=== PATIENT | female | born 1940 | race Caucasian/White ===

== ENCOUNTER 2016-06-12 02:20 | Inpatient (IN) | payer MEDICARE ==
[~2016-06-12] VITALS: Ht 160 cm; Wt 55.3 kg
[~2016-06-12 02:20] MED LIST: ALENDRONATE SOD70 MG PO; BAYER CHEWABLE81 MG PO; COLACE100 MG PO; CYMBALTA60 MG PO; DEMEROL 2525 MG/1 ML IM; HYDROCODONE-APA1 TAB PO; K-DUR20 MEQ PO; LIDODERM 5 %1 PATCH TD; LOVENOX30 MG/0.3 SQ; MIRALAX17 GM PO; MIRAPEX0.125 MG PO; NEXIUM40 MG PO; NORCO 10/325 TA1 TA1 PO; OS-CAL 500+D TA1 TAB PO; PRAVACHOL40 MG PO; QUESTRAN PACK4 G/PKT PO; ROCEPHIN 1 GM/D51 G1 IV; SENOKOT-S TABLE1 TAB PO; TENORMIN25 MG PO; TYLENOL 325 MG325 MG PO; VENTOLIN HFA18 GM INH; XANAX1 MG; XANAX1 MG PO; ZOFRAN4 MG PO
--- NOTE | 2016-06-12 05:10 | NUR ---
PATIENT RECIEVED FROM ER A NEW ADMIT TO DOCTOR OLMOS. ADMITTED FOR DEMENTIA, ALTERED MENTAL STATUS AND VISUAL HALLUCINATIONS. PATIENT WALKED A MILE FROM [facility] BECAUSE SHE STATED SHE WANTS TO SMOKE AND DRINK WHEN SHE WANTS TO. VITAL SIGNS STABLE UPON ADMIT, ORIENTED TO UNIT, CALM AND COOPERATIVE TO STAFF. MARIO ALARM ON BED.
[2016-06-12] MEDS ORDERED: BIAXIN 500 MG500 MG PO (05:15)
[2016-06-12] MEDS ORDERED: AMOXICILLIN500 M1 PO (05:15)
[2016-06-12] MEDS ORDERED: MELATONIN 3 MG1 TAB PO (05:16)
[2016-06-12] MEDS ORDERED: ACETAMINOPHEN500 M1 PO (05:17)
[2016-06-12 06:45] LABS: BASOPHILS 0.8 % (0.0-2.0); EOSINOPHILS 4.1 % (0-7); HEMATOCRIT 34.3 % (36.0-48.0); HEMOGLOBIN 11.1 g/dL (12-16); LYMPHOCYTES 49.1 % (15-50); MCH 30.2 pg (26.0-34.0); MCHC 32.4 g/dL (31.0-37.0); MCV 93.2 fL (80.0-100.0); MEAN PLATELET VOLUME 8.9 fL (7.4-10.4); MONOCYTES 8.3 % (2-11); NEUTROPHILS 37.7 % (40-80); PLATELET COUNT 235 10x3/uL (130-400); RBC 3.68 10x6/uL (4.00-5.40); RDW 14.7 % (11.5-14.5); WBC 3.9 10x3/uL (4.8-10.8)
[2016-06-12 07:00] VITALS: BP 118/62; BMI 21.5
[2016-06-12 07:13] LABS: ALBUMIN 2.9 g/dL (3.4-5.0); ALKALINE PHOSPHATASE 33 U/L (46-116); ALT (SGPT) 13 U/L (10-68); CALC OSMOLALITY 288 mosm/kg (275-300); CALCIUM 8.7 mg/dL (8.5-10.1); CARBON DIOXIDE 30.1 mmol/L (21.0-32.0); CHLORIDE - SERUM 109 mmol/L (98-107); CHOL - HDL RATIO 2.6 ratio (2.3-4.1); CHOLESTEROL, TOTAL 142 mg/dL (0-200); CREATININE - SERUM 0.6 mg/dL (0.6-1.3); GLUCOSE 82 mg/dL (74-106); HDL CHOLESTEROL 55 mg/dL (32-96); LDL CHOLESTEROL 73 mg/dL (0-100); LDL-HDL RATIO 1.3 ratio (1.5-3.5); POTASSIUM - SERUM 3.8 mmol/L (3.5-5.1); PROTEIN - SERUM 6.3 g/dL (6.4-8.2); SODIUM 145 mmol/L (136-145); THYROID STIMULATING HORMONE 1.63 uIU/mL (0.36-3.74); TRIGLYCERIDE 72 mg/dL (30-200); UREA NITROGEN 14 mg/dL (7-18); eGFR NON AFRICAN AMERICAN > 90 mL/min (90-120)
[2016-06-12 08:01] VITALS: BP 111/53
[2016-06-12 09:25] VITALS: Ht 160 cm; Wt 55.3 kg
--- NOTE | 2016-06-12 14:23 | NUR ---
B.) Alert and oriented to self, has no insight to why she is here states " I'm here at this [facility] because they asked me too, and I figured it's christian so why not." I.) Administer medications and monitor compliance, redirect and reorient as need. Encourage group participation. Monitor safety. R.) Compliant with medications. No aggression. No evidence of reorientation. P.) Continue plan of care.
--- NOTE | 2016-06-12 17:15 | NUR ---
Patient daughter Raven Yanez here to complete signing admission papers, took home patient belongings of black cell phone and silver colored watch.
[2016-06-12 20:29] VITALS: BP 150/92
[2016-06-12 22:45] LABS: APPEARANCE HAZY (CLEAR); COLOR YELLOW (YELLOW)
[2016-06-12 22:46] LABS: BACTERIA MANY /hpf (NONE SEEN); BILIRUBIN NEGATIVE (NEGATIVE); GLUCOSE NEGATIVE (NEGATIVE); KETONE NEGATIVE (NEGATIVE); LEUKOCYTE ESTERASE 1+ (NEGATIVE); NITRITE POSITIVE (NEGATIVE); PROTEIN NEGATIVE (NEGATIVE); RED CELLS - URINE 0-5 /hpf (0-5); UROBILINOGEN NORMAL (NORMAL)
--- NOTE | 2016-06-13 00:14 | NUR ---
B) Recieved sitting in the day room, alert and oriented to self, thinks she needs to see the us administrative law judge in the morning, restless at times, demanding and impatient at times. I) Administered perscribed medications , redirected and oriented as needed, R) Medication compliant, difficult to redirect, P) Continue plan of care, continue to monitor.
[2016-06-13] MEDS ORDERED: SEROQUEL100 MG PO (04:29)
[2016-06-13] MEDS ORDERED: ZOFRAN4 MG PO (04:38)
[2016-06-13 06:15] LABS: RAPID PLASMA REAGIN Non Reactive (Non Reactive)
[2016-06-13 07:50] VITALS: BP 140/91
[2016-06-13 08:22] LABS: VITAMIN D 25 HYDROXY 12.1 ng/mL (30.0-100.0)
[2016-06-13 09:17] LABS: FOLATE (FOLIC ACID) - SERUM 14.3 ng/mL (>3.0)
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
--- NOTE | 2016-06-13 12:26 | NUR ---
CONTINUES TO C/O PAIN WITH A RATING 8/10. PRN NORCO ADMINISTERED PER ORDERS.
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
--- NOTE | 2016-06-13 15:16 | NUR ---
VARINDER SPOKE WITH DTR AND PT'S SURGERY IS SCHEDULED FOR Friday06/20/16. VARINDER CALLED 'S OFFICE AND THEY ARE WILLING TO ACCEPT PT EARLY ON MONDAY 06/19. VARINDER NEEDS TO CONTACT ANDREA KILLIAN AT FRIDAY TO REMIND HER OF DISCHARGE PLANS.
--- NOTE | 2016-06-14 02:27 | NUR ---
B) Recieved sleeping in the day room, arrouses to name, alert, and oriented to self, argumentive at times, resistant to redirection, does not want to follow the unit rules, I) Administered perscribed medications, redirected and oriented as needed, PRN Haldol 1 mg IM given for anxiety at 0215, R) Medication compliant, wanting to walk the halls and argue with the staff to keep from sleeping, P) Continue plan of care, continue to monitor.
[2016-06-14 08:55] VITALS: BP 114/55
--- NOTE | 2016-06-14 13:28 | NUR ---
(B)RECEIVED PATIENT LAYING IN BED. SEDATED. WILL OPEN EYES PARTIALLY TO VERBAL INSTRUCTIONS RELATING "OK. I'M TRYING" HOWEVER DOES NOT COMPLETELY OPEN EYES. MOSTLY WHISPERING AND MUMBLING. PATIENT WILL OCCASIONALLY SAY SOMETHING THAT IS UNDERSTANDABLE. ASSISTED UP BY DRESSING AND ASSISTING TO CHAIR. (I)ADMINISTER MEDS AND MONITOR COMPLIANCE. (R)MEDICATIONS WERE HELD DUE TO PATIENT BEING SEDATED. ATTEMPTS TO FOLLOW INSTRUCTIONS HOWEVER DOES NOT COMPLETELY WAKE UP. (P)CONTINUE POC AND MAINTAIN FALL PRECAUTIONS.
[2016-06-14 19:30] VITALS: BP 119/66
--- NOTE | 2016-06-15 02:15 | NUR ---
Patient in dayroom, oriented to person, place and situation. Lethargic but awake. Patient was cooperative with medication. Continue plan of care, continue to monitor.
[2016-06-15 09:03] VITALS: BP 119/68
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
[2016-06-15 19:30] VITALS: BP 120/75
--- NOTE | 2016-06-15 21:37 | NUR ---
B) recieved sitting in a chair inthe day room, alert and oriented to self and hospital, calm and quiet this shift, cooperative with staff, I) Administered perscribed medications, redirected as needed, reoriented as needed, R) medication compliant, no outburst this shift, P) Continue plan of care, continue to monitor.
--- NOTE | 2016-06-16 07:54 | PN ---
PATIENT:DREW GARCÍA MEDICAL RECORD: [id number] LOCATION:[facility] ADMISSION DATE: 06/12/16 PROGRESS NOTE DATE OF SERVICE: 06/14/2016 SUBJECTIVE: No new complaint. OBJECTIVE: The patient exhibited moderate agitation last night, but responded well to p.r.n.'s. On exam today, mood is euthymic. Affect is constricted. Speech is rather terse. Content of thought focuses only on somatic concerns. Sensorium is unchanged. ASSESSMENT: No change in diagnoses. PLAN: 1. Maintain current medications. 2. Continue supportive therapy. TRANSINT:[id number] Voice Confirmation ID: [id number] DOCUMENT ID: [id number] BRONWYN ARANDA III, MD at 0754 CC: [id number] DICTATION DATE: 06/14/16 1051 GYMNASTIC COACH: 06/14/16 1300 ADM IN [place] [id number] [place] [id number]
[2016-06-16 10:07] VITALS: BP 112/68
--- NOTE | 2016-06-16 15:05 | NUR ---
ORIENTED TO PERSON AND PLACE. NO AGGRESSION NOTED. DENIES SI, DEPRESSION, AND HALLUCINATIONS. POSITIVE REINFORCEMENT GIVEN FOR GROUP PARTICIPATION. MED COMPLIANT. EDUCATION PT ON PROPER USE OF WALKER. REDIRECTED NEEDED. FALL PRECAUTIONS MAINTAINED. WILL CONTINUE WITH PLAN OF CARE.
[2016-06-16 19:30] VITALS: BP 121/66
--- NOTE | 2016-06-16 20:14 | NUR ---
RECEIVED IN DAYROOM. SETTING IN WHEELCHAIR. ORIENTED X3. CALM AND COOPERATIVE WITH CARE AND ASSESSMENT. ENCOURAGE TO EXPRESS NEEDS. REINFORCE TO EXPRESS NEEDS AND FEELINGS. CONTINUES TO REST QUIETLY IN WHEELCHAIR. CONTINUE PLAN OF CARE
[2016-06-17 10:31] VITALS: BP 108/65
--- NOTE | 2016-06-17 13:31 | PN ---
PATIENT:DREW GARCÍA MEDICAL RECORD: [id number] LOCATION:[facility] ADMISSION DATE: 06/12/16 PROGRESS NOTE DATE OF SERVICE: 06/13/2016 SUBJECTIVE: The patient's case was discussed with staff. She has no new complaint. OBJECTIVE: The patient is in good behavioral control with limited insight about her condition. She tolerates her medicines well. ASSESSMENT: No change in diagnoses. PLAN: Current medicines and therapies have been reviewed and will be maintained. Long-term prognosis is guarded. TRANSINT:[id number] Voice Confirmation ID: [id number] DOCUMENT ID: [id number] HARISH OLMOS MD at 1331 CC: [id number] DICTATION DATE: 06/13/16 1452 WATER PROOFER: 06/13/16 1532 ADM IN [place] [id number] [place] [address]
--- NOTE | 2016-06-17 16:45 | NUR ---
RECEIVED THIS AM SITTING IN WHEELCHAIR AT NURSES STATION.PROPELLS SELF IN WHEELCHAIR.ORIENTED AND COOPERATIVE.COMPLIANT WITH MEDS.NO AGGRESSION OBSERVED,DENIES SUICIDE IDEATION AND DEPRESSION TODAY.WILL CONTINUE WITH PLAN OF CARE ,MONITOR FOR CHANGES AND SAFETY.
[2016-06-17 20:00] VITALS: BP 122/66
--- NOTE | 2016-06-17 20:12 | NUR ---
RECEIVED IN DAYROOM. SETTING IN WHEELCHAIR AT TABLE WITH STAFF AND PEERS AT HER SIDE. ALERT AND ORIENTED. HELPFUL WITH PEERS. IN GOOD SPIRITS. CALM AND COOPERATIVE WITH CARE AND ASSESSMENT. ENCOURAGE TO EXPRESS NEEDS. CONTINUES TO SET QUIETLY IN WHEELCHAIR. CONTINUE PLAN OF CARE
[2016-06-18 08:32] VITALS: BP 122/68
--- NOTE | 2016-06-18 10:37 | NUR ---
Nutrition Follow Up: Chart reviewed. Pt is eating 58% meal avg on a Regular diet. +BM 06/16/16. Meds noted including Megace. No new labs to assess. Pt with fair po intake at this time. Rec continue current diet. Will continue to send selective menus and honor food preferences. Will send Ensure with meals. RD following.
--- NOTE | 2016-06-18 12:38 | NUR ---
B.) Alert and oriented times three, forgetful at times, very social with others with appropriate behavior and conversation. I.) Administer medciations and monitor compliance. Redirect for any inappropriate behavior. Encourage group participation. Monitor safety. R.) Compliant with medications. Calm and cooperative with care. Self propels in wheel chair with no exit seeking or risk of elopment. Safety maintained. P.) Continue plan of care.
--- NOTE | 2016-06-18 13:44 | PN ---
PATIENT:DREW GARCÍA MEDICAL RECORD: [id number] LOCATION:[facility] ADMISSION DATE: 06/12/16 PROGRESS NOTE DATE OF SERVICE: 06/17/2016 SUBJECTIVE: The patient's case was discussed with staff. She has no new complaint. OBJECTIVE: The patient denies intent to harm herself or others. She generally tolerates her medicines well. ASSESSMENT: No change in diagnoses. PLAN: The patient is severely impaired and scored 14/30 on the [place] scale. Her functioning is clearly inappropriate for assisted living and the fact that she has been in a structured environment with reassurance and queuing and her admitting symptoms have gone away as further evidence that the problem was environmental and does not require an aggressive pharmacologic intervention. As a result, I have reviewed her medications and did not plan to change them today. TRANSINT:[id number] Voice Confirmation ID: [id number] DOCUMENT ID: [id number] HARISH OLMOS MD at 1344 CC: [id number] DICTATION DATE: 06/17/16 1455 SCALE AND SKIP CAR OPERATOR: 06/17/16 2215 ADM IN [place] [id number] [place] [address]
[2016-06-18] MEDS ORDERED: MEGACE40 MG PO (13:54)
[2016-06-18] MEDS ORDERED: ARICEPT5 MG PO (13:55)
[2016-06-18] MEDS ORDERED: VITAMIN D5000 UNIT PO (13:56)
[2016-06-18 19:31] VITALS: BP 144/83
--- NOTE | 2016-06-18 23:41 | NUR ---
PATIENT IN DAYROOM, INTERACTING WITH PEERS. PATIENT ORIENTED TO PERSON, PLACE, TIME AND SITUATION. PATIENT CALM AND COOPERATIVE. CONTINUE TO MONITOR, CONTINUE PLAN OF CARE.
[2016-06-19 08:02] VITALS: BP 135/75
--- NOTE | 2016-06-19 09:39 | NUR ---
FOLLOW-UP APPOINTMENT MADE FOR PATIENT WITH NATHALY MOISE NP FOR DR DE PAZ FOR Friday AT 2 PM.
--- NOTE | 2016-06-19 09:50 | NUR ---
PRESCRIPTIONS CALLED INTO THE PHARMACY OF PATIENT'S CHOICE.
--- NOTE | 2016-06-19 16:40 | PN ---
PATIENT:DREW GARCÍA MEDICAL RECORD: [id number] LOCATION:[facility] ADMISSION DATE: 06/12/16 PROGRESS NOTE DATE OF SERVICE: 06/18/2016 SUBJECTIVE: The patient's case was discussed with staff. She has no new complaint. OBJECTIVE: The patient is calm and cooperative, but severely impaired cognitively. She is scheduled for surgery on and will be discharged tomorrow afternoon if this level of improvement is maintained. TRANSINT:[id number] Voice Confirmation ID: [id number] DOCUMENT ID: [id number] HARISH OLMOS MD at 1640 CC: [id number] DICTATION DATE: 06/18/16 1400 IMAGERY ANALYST: 06/18/162010 ADM IN [facility] [address] [place] [address]
--- NOTE | 2016-06-19 18:18 | NUR ---
RECEIVED SITTING IN WHEELCHAIR IN DAYROOM.ORIENTED X 3.COMPLIANT WITH MEDS. VISITS WITH PEERS.TO BE DISCHARGED HOME WITH DAUGHTER THIS AFTERNOON.WILL CONTINUE WITH PLAN OF CARE,MONITOR FOR CHANGES AND SAFETY.
--- NOTE | 2016-06-19 18:25 | NUR ---
DISCHARGED HOME WITH DAUGHTER AT 1615.ALL PERSONAL ITEMS AND INSTRUCTIONS SENT WITH HER.
--- NOTE | 2016-06-20 13:22 | PN ---
PATIENT:DREW GARCÍA MEDICAL RECORD: [id number] LOCATION:[facility]112 ADMISSION DATE: 06/12/16 PROGRESS NOTE DATE OF SERVICE: 06/19/2016 SUBJECTIVE: The patient's case was discussed with staff. She has no new complaint. OBJECTIVE: The patient is in good behavioral control. She is quite impaired cognitively. ASSESSMENT: No change in diagnosis. PLAN: The patient is being discharged today. She will be admitted to the hospital across [facility] in the morning and she is going to have revision of her shunt. I am not optimistic that that is going to change her cognition. I do think that her behaviors have been related to dementia and not this neurologic problem. I hope I am wrong about that, but it will be important to reassess her needs after the surgery. I am hopeful that she will improve cognitively, but at this point, she does not show evidence of direct or acute dangerousness to herself or others. TRANSINT:[id number] Voice Confirmation ID: [id number] DOCUMENT ID: [id number] HARISH OLMOS MD at 1322 CC: [id number] DICTATION DATE: 06/19/16 1652 FAMILY NURSE PRACTITIONER: 06/19/165 DIS IN 06/19/16 [place] [address] [place] [address]
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
== END 2016-06-19 16:15 | disposition home or self-care (01) | DRG 57 ==
LOC: D.PSYCH 02:20
PROVIDERS: ADMIT Psychiatry & Neurology Psychiatry
DX: G30.1 Alzheimer's disease with late onset (principal); F02.81 Dementia in other diseases classified elsewhere, unspecified severity, with behavioral disturbance; G91.2 (Idiopathic) normal pressure hydrocephalus; N39.0 Urinary tract infection, site not specified; K21.9 Gastro-esophageal reflux disease without esophagitis; K59.09 Other constipation; F41.9 Anxiety disorder, unspecified; Z72.0 Tobacco use; E78.5 Hyperlipidemia, unspecified; I25.10 Atherosclerotic heart disease of native coronary artery without angina pectoris; D64.9 Anemia, unspecified; R26.89 Other abnormalities of gait and mobility; G47.00 Insomnia, unspecified; B96.20 Unspecified Escherichia coli [E. coli] as the cause of diseases classified elsewhere; E55.9 Vitamin D deficiency, unspecified

== ENCOUNTER 2017-06-29 22:39 | Inpatient (IN) | payer MEDICARE ==
[~2017-06-29 22:39] MED LIST changes: +ACETAMINOPHEN500 M1 PO; +AMOXICILLIN500 M1 PO; +ARICEPT5 MG PO; +BIAXIN 500 MG500 MG PO; +MEGACE40 MG PO; +MELATONIN 3 MG1 TAB PO; +SEROQUEL100 MG PO; +VITAMIN D5000 UNIT PO
[2017-06-29 23:30] LABS: BASOPHILS 0.1 % (0-2); EOSINOPHILS 0.5 % (0-7); HEMATOCRIT 31.5 % (36.0-48.0); HEMOGLOBIN 9.2 g/dL (12-16); IMMATURE GRANULOCYTES 0.3 % (0-5); LYMPHOCYTES 5.5 % (15-50); MCH 22.7 pg (26.0-34.0); MCHC 29.2 g/dL (31.0-37.0); MCV 77.6 fL (80.0-100.0); MEAN PLATELET VOLUME 8.8 fL (7.4-10.4); MONOCYTES 8.7 % (2-11); NEUTROPHILS 84.9 % (40-80); PLATELET COUNT 311 10x3/uL (130-400); RBC 4.06 10x6/uL (4.00-5.40); WBC 15.3 10x3/uL (4.8-10.8)
[2017-06-29 23:37] LABS: APTT 25.9 SECONDS (22.8-39.4); INR 1.07 (0.85-1.17); PROTIME 13.5 SECONDS (11.6-15.0)
[2017-06-29 23:42] LABS: ALBUMIN 3.4 g/dL (3.4-5.0); ALKALINE PHOSPHATASE 51 U/L (46-116); ALT (SGPT) 11 U/L (10-68); BILIRUBIN - TOTAL 0.26 mg/dL (0.2-1.3); CALC OSMOLALITY 281 mosm/kg (275-300); CALCIUM 8.7 mg/dL (8.5-10.1); CHLORIDE - SERUM 103 mmol/L (98-107); CREATININE - SERUM 0.9 mg/dL (0.6-1.3); GLUCOSE 125 mg/dL (74-106); POTASSIUM - SERUM 3.7 mmol/L (3.5-5.1); PROTEIN - SERUM 7.6 g/dL (6.4-8.2); SODIUM 141 mmol/L (136-145); UREA NITROGEN 12 mg/dL (7-18); eGFR NON AFRICAN AMERICAN 64 mL/min (90-120)
[2017-06-29 23:54] LABS: CKMB 0.7 U/L (0.0-3.6); CREATINE KINASE 67 UL (21-215); PRO BNP 426 pg/mL (0-450)
[2017-06-29 23:55] LABS: TROPONIN-I < 0.017 ng/mL (0.000-0.060)
[2017-06-30 00:01] LABS: APPEARANCE CLEAR (CLEAR); BILIRUBIN NEGATIVE (NEGATIVE); COLOR YELLOW (YELLOW); GLUCOSE NEGATIVE (NEGATIVE); KETONE NEGATIVE (NEGATIVE); NITRITE NEGATIVE (NEGATIVE); PROTEIN NEGATIVE (NEGATIVE); UROBILINOGEN NORMAL (NORMAL)
[2017-06-30] MEDS ORDERED: OMEPRAZOLE20 M1 PO (01:41)
[2017-06-30] MEDS ORDERED: COMPAZINE5 MG PO (01:43)
[2017-06-30] MEDS ORDERED: PROZAC10 MG PO (01:44)
[2017-06-30 01:45] VITALS: BP 106/38; BMI 25.2
[2017-06-30 03:11] LABS: BASOPHILS 0.2 % (0-2); EOSINOPHILS 0 % (0-7); HEMATOCRIT 31.7 % (36.0-48.0); HEMOGLOBIN 9.3 g/dL (12-16); IMMATURE GRANULOCYTES 0.2 % (0-5); LYMPHOCYTES 6.3 % (15-50); MCH 22.7 pg (26.0-34.0); MCHC 29.3 g/dL (31.0-37.0); MCV 77.5 fL (80.0-100.0); MEAN PLATELET VOLUME 8.8 fL (7.4-10.4); MONOCYTES 1.2 % (2-11); NEUTROPHILS 92.1 % (40-80); PLATELET COUNT 312 10x3/uL (130-400); RBC 4.09 10x6/uL (4.00-5.40); RDW 16.9 % (11.5-14.5); WBC 16.3 10x3/uL (4.8-10.8)
[2017-06-30 03:23] LABS: ALBUMIN 3.4 g/dL (3.4-5.0); ANION GAP 15.3 mmol/L (8-16); BILIRUBIN - TOTAL 0.3 mg/dL (0.2-1.3); CALCIUM 8.6 mg/dL (8.5-10.1); CARBON DIOXIDE 27.2 mmol/L (21.0-32.0); CREATININE - SERUM 0.9 mg/dL (0.6-1.3); POTASSIUM - SERUM 3.5 mmol/L (3.5-5.1); PROTEIN - SERUM 7.7 g/dL (6.4-8.2)
[2017-06-30 04:38] VITALS: BP 108/42
[2017-06-30 08:02] VITALS: BP 113/53
[2017-06-30 10:44] LABS: % SATURATION 5 % (15-55); IRON 19 ug/dl (35-150); TOTAL IRON BIND CAPACITY 356 ug/dl (260-445); UNSAT IRON BIND CAPACITY 337 ug/dl (150-375)
[2017-06-30 11:23] VITALS: BP 121/46
[2017-06-30 12:44] VITALS: BMI 25.1
[2017-06-30 16:06] VITALS: BP 116/56
[2017-06-30] MEDS ORDERED: KLONOPIN0.5 MG PO (21:03)
[2017-06-30 21:14] VITALS: BP 123/55
[2017-07-01 01:38] VITALS: BP 121/52
[2017-07-01 04:59] LABS: BASOPHILS 0 % (0-2); EOSINOPHILS 0 % (0-7); HEMATOCRIT 27.7 % (36.0-48.0); HEMOGLOBIN 8.2 g/dL (12-16); IMMATURE GRANULOCYTES 0.3 % (0-5); LYMPHOCYTES 5.3 % (15-50); MCH 22.8 pg (26.0-34.0); MCHC 29.6 g/dL (31.0-37.0); MCV 77.2 fL (80.0-100.0); MEAN PLATELET VOLUME 9.3 fL (7.4-10.4); MONOCYTES 3.3 % (2-11); NEUTROPHILS 91.1 % (40-80); PLATELET COUNT 318 10x3/uL (130-400); RBC 3.59 10x6/uL (4.00-5.40); RDW 17.5 % (11.5-14.5); WBC 19.3 10x3/uL (4.8-10.8)
[2017-07-01 05:19] LABS: CALC OSMOLALITY 286 mosm/kg (275-300); CALCIUM 8.5 mg/dL (8.5-10.1); CARBON DIOXIDE 25.2 mmol/L (21.0-32.0); CHLORIDE - SERUM 106 mmol/L (98-107); CREATININE - SERUM 0.7 mg/dL (0.6-1.3); GLUCOSE 150 mg/dL (74-106); POTASSIUM - SERUM 3.4 mmol/L (3.5-5.1); SODIUM 142 mmol/L (136-145); UREA NITROGEN 15 mg/dL (7-18); eGFR NON AFRICAN AMERICAN 86 mL/min (90-120)
[2017-07-01 05:55] VITALS: BP 119/62
[2017-07-01 08:19] LABS: FOLATE (FOLIC ACID) - SERUM 14.9 ng/mL (>3.0)
[2017-07-01 09:18] VITALS: BP 120/54
[2017-07-01 13:06] VITALS: BP 107/43
[2017-07-01 16:35] VITALS: BP 120/48
[2017-07-01 21:30] VITALS: BP 112/53
[2017-07-02 01:10] VITALS: BP 124/54
[2017-07-02 04:36] VITALS: BP 124/58
[2017-07-02 05:34] LABS: BASOPHILS 0 % (0-2); EOSINOPHILS 0 % (0-7); HEMATOCRIT 26.7 % (36.0-48.0); HEMOGLOBIN 7.8 g/dL (12-16); IMMATURE GRANULOCYTES 0.4 % (0-5); LYMPHOCYTES 9.4 % (15-50); MCH 22.3 pg (26.0-34.0); MCHC 29.2 g/dL (31.0-37.0); MCV 76.5 fL (80.0-100.0); MEAN PLATELET VOLUME 9.1 fL (7.4-10.4); MONOCYTES 5.2 % (2-11); PLATELET COUNT 314 10x3/uL (130-400); RBC 3.49 10x6/uL (4.00-5.40)
[2017-07-02 05:39] LABS: WBC 13.9 10x3/uL (4.8-10.8)
[2017-07-02 05:53] LABS: CALC OSMOLALITY 286 mosm/kg (275-300); CALCIUM 8.5 mg/dL (8.5-10.1); CARBON DIOXIDE 27.5 mmol/L (21.0-32.0); CHLORIDE - SERUM 108 mmol/L (98-107); CREATININE - SERUM 0.6 mg/dL (0.6-1.3); GLUCOSE 117 mg/dL (74-106); POTASSIUM - SERUM 3.6 mmol/L (3.5-5.1); SODIUM 143 mmol/L (136-145); UREA NITROGEN 14 mg/dL (7-18); eGFR NON AFRICAN AMERICAN > 90 mL/min (90-120)
[2017-07-02 08:45] VITALS: BP 120/57
[2017-07-02] MEDS ORDERED: ZITHROMAX250 MG PO (10:16)
[2017-07-02] MEDS ORDERED: OMNICEF300 MG PO (10:16)
== END 2017-07-02 11:34 | disposition home or self-care (01) | DRG 189 ==
LOC: D.ER 22:39 → D.MS 06-30 00:52
PROVIDERS: Family Medicine; Internal Medicine Nephrology
DX: J96.21 Acute and chronic respiratory failure with hypoxia (principal); J44.0 Chronic obstructive pulmonary disease with (acute) lower respiratory infection; G91.2 (Idiopathic) normal pressure hydrocephalus; J44.1 Chronic obstructive pulmonary disease with (acute) exacerbation; J81.1 Chronic pulmonary edema; D50.9 Iron deficiency anemia, unspecified; E55.9 Vitamin D deficiency, unspecified; F03.90 Unspecified dementia, unspecified severity, without behavioral disturbance, psychotic disturbance, mood disturbance, and anxiety; K21.9 Gastro-esophageal reflux disease without esophagitis; K58.0 Irritable bowel syndrome with diarrhea

== ENCOUNTER → 2018-01-09 13:29 | Outpatient (CLI) | payer MEDICARE ==
[~2018-01-09 13:29] MED LIST changes: +COMPAZINE5 MG PO; +KLONOPIN0.5 MG PO; +OMEPRAZOLE20 M1 PO; +OMNICEF300 MG PO; +PROZAC10 MG PO; +ZITHROMAX250 MG PO
== END | disposition home or self-care (01) ==
LOC: D.RT 13:29
DX: J44.9 Chronic obstructive pulmonary disease, unspecified (principal)

== ENCOUNTER → 2018-03-04 09:56 | Outpatient (CLI) | payer MEDICARE | END | disposition home or self-care (01) | LOC: D.CT 09:56 | DX: T85.09XA Other mechanical complication of ventricular intracranial (communicating) shunt, initial encounter (principal) ==

== ENCOUNTER 2018-03-12 11:30 | Inpatient (IN) | payer MEDICARE ==
[2018-03-11 15:05] LABS: BASOPHILS 0.7 % (0-2); EOSINOPHILS 1.4 % (0-7); HEMATOCRIT 41.1 % (36.0-48.0); HEMOGLOBIN 13.2 g/dL (12-16); IMMATURE GRANULOCYTES 0.3 % (0-5); LYMPHOCYTES 14.1 % (15-50); MCH 29.6 pg (26.0-34.0); MCHC 32.1 g/dL (31.0-37.0); MCV 92.2 fL (80.0-100.0); MEAN PLATELET VOLUME 9.1 fL (7.4-10.4); MONOCYTES 7.5 % (2-11); PLATELET COUNT 295 10x3/uL (130-400); RBC 4.46 10x6/uL (4.00-5.40); RDW 13.9 % (11.5-14.5); WBC 10.6 10x3/uL (4.8-10.8)
[2018-03-11 15:14] LABS: CALC OSMOLALITY 286 mosm/kg (275-300); CALCIUM 8.8 mg/dL (8.5-10.1); CARBON DIOXIDE 33.9 mmol/L (21.0-32.0); CHLORIDE - SERUM 105 mmol/L (98-107); CREATININE - SERUM 0.7 mg/dL (0.6-1.3); GLUCOSE 98 mg/dL (74-106); POTASSIUM - SERUM 3.4 mmol/L (3.5-5.1); SODIUM 144 mmol/L (136-145); UREA NITROGEN 13 mg/dL (7-18); eGFR NON AFRICAN AMERICAN 86 mL/min (90-120)
[2018-03-11 15:16] LABS: APTT 24.4 SECONDS (22.8-39.4)
[2018-03-11 15:17] LABS: INR 1.01 (0.85-1.17); PROTIME 12.9 SECONDS (11.6-15.0)
[~2018-03-12] VITALS: Ht 162.6 cm; Wt 67.3 kg
--- NOTE | ~2018-03-12 | MORECARE ---
CASE MANAGEMENT DISCHARGE SUMMARY PATIENT: DREW GARCÍA UNIT: [id number] ADM DATE: 03/12/18 AGE: 78 : 41 SEX: F ROOM/BED: D.2230 AUTHOR: EDUARDOC PHYSICIAN: REFERRING PHYSICIAN: JEANNINE AJ MD DATE OF SERVICE: 03/16/18 Discharge Plan Patient Name: DREW GARCÍA Facility: [facility] : 1940 Planned Disposition: Assisted Living Anticipated Discharge Date: 03/13/18 Discharge Date: 03/13/2018 Expected LOS: 1 Initial Reviewer: [email or web address] Initial Review Date: 03/13/2018 Generated: 03/16/18 3:37 pm DCP- Discharge Planning Updated by [email or web address]: Kenia Jeffries on 03/13/18 8:[address] Patient Name: DREW GARCÍA Admission Status: Elective Accout number: [id number] Admission Date: 03-12-2018 : 1940 Admission Diagnosis: Attending: JEANNINE AJ Current LOS: 1 Anticipated DC Date: 03-13-2018 Planned Disposition: Assisted Living Primary Insurance: MEDICARE A & B Discharge Planning Comments: CM met with patient and daughter to discuss discharge planning. She lives at [facility]. Her daughter states she will take her home. States she uses her walker for ambulation and nurses give her medications, otherwise she is independent with ADL's. Her DCP is to return to [facility]. Denies need for additional DME or home health services. I called and spoke to the nurse at [facility] and clinical faxed to [phone] per request. customer account coordinator and primary nurse given number to call report. CM will continue to follow and assist with discharge planning/needs. Lead Informatica Developer: Kenia Jeffries DCPIA - Discharge Planning Initial Assessment Updated by [email or web address]: Kenia Jeffries on 03/13/18 9:56 am * Is the patient Alert and Oriented? Yes * How many steps to enter\exit or inside your home? 0/0 * PCP Dr. Lopez * Pharmacy [place] * Preadmission Environment Assisted Living * Facility Name [facility] * ADLs Partial Dependent * Partial ADLs (Assistance needed) Ambulation Medication Management * Equipment Rolling Walker * List name and contact numbers for known caregivers / representatives who currently or will assist patient after discharge: Raven Yanez * Verbal permission to speak to the caregivers and representatives has been obtained from the patient. Yes * Community resources currently utilized Assisted Living * Please name any agencies selected above. [facility] * Additional services required to return to the preadmission environment? No * Can the patient safely return to the preadmission environment? Yes * Has this patient been hospitalized within the prior 30 days at any hospital? No Last DP export: 03/13/18 9:07 a Patient Name: DREW GARCÍA Page [id number] at 1437 All edits/amendments must be made on the electronic document DICTATION DATE: 03/16/181436 MANAGER: TAMERA 03/16/181436 RPT#: [id number] DC DATE:03/13/18 STATUS: DIS IN [facility] [address] [place] [address] END OF REPORT
--- NOTE | ~2018-03-12 | MORECARE ---
CASE MANAGEMENT DISCHARGE SUMMARY PATIENT: DREW GARCÍA UNIT: [id number] ADM DATE: 03/12/18 AGE: 78 : 41 SEX: F ROOM/BED: D.2230 AUTHOR: EDUARDOC PHYSICIAN: REFERRING PHYSICIAN: JEANNINE AJ MD DATE OF SERVICE: 03/13/18 Discharge Plan Patient Name: DREW GARCÍA Facility: [facility]:[place] : 1940 Planned Disposition: Assisted Living Anticipated Discharge Date: 03/13/18 Discharge Date: Expected LOS: 1 Initial Reviewer: [email or web address] Initial Review Date: 03/13/2018 Generated: 03/13/18 11:07 am Comments DCP- Discharge Planning Updated by [email or web address]: Kenia Jeffries on 03/13/18 8:[address] Patient Name: DREW GARCÍA Admission Status: Elective Accout number: [id number] Admission Date: 03-12-2018 : 1940 Admission Diagnosis: Attending: JEANNINE AJ Current LOS: 1 Anticipated DC Date: 03-13-2018 Planned Disposition: Assisted Living Primary Insurance: MEDICARE A & B Discharge Planning Comments: CM met with patient and daughter to discuss discharge planning. She lives at [facility]. Her daughter states she will take her home. States she uses her walker for ambulation and nurses give her medications, otherwise she is independent with ADL's. Her DCP is to return to [facility]. Denies need for additional DME or home health services. I called and spoke to the nurse at [facility] and clinical faxed to [phone] per request. digital traffic coordinator and primary nurse given number to call report. CM will continue to follow and assist with discharge planning/needs. Web Applications Administrator: Kenia Jeffries DCPIA - Discharge Planning Initial Assessment Updated by [email or web address]: Kenia Jeffries on 03/13/18 9:56 am * Is the patient Alert and Oriented? Yes * How many steps to enter\exit or inside your home? 0/0 * PCP Dr. Lopez * [facility]acy [facility] * Preadmission Environment Assisted Living * Facility Name [facility] * ADLs Partial Dependent * Partial ADLs (Assistance needed) Ambulation Medication Management * Equipment Rolling Walker * List name and contact numbers for known caregivers / representatives who currently or will assist patient after discharge: Raven Yanez * Verbal permission to speak to the caregivers and representatives has been obtained from the patient. Yes * Community resources currently utilized Assisted Living * Please name any agencies selected above. [facility] * Additional services required to return to the preadmission environment? No * Can the patient safely return to the preadmission environment? Yes * Has this patient been hospitalized within the prior 30 days at any hospital? No External Providers External Provider: Barry Tuttle Next Contact Date: Service Request Date: Service Type: Resolution: Reviewer: Comments: Last DP export: 03/13/18 9:00 a Patient Name: DREW GARCÍA Page [phone] at 1007 All edits/amendments must be made on the electronic document DICTATION DATE: 03/13/18 [facility] GARBAGE COLLECTOR: TAMERA 03/13/18 [facility] RPT#: [id number] DC DATE: STATUS: ADM IN [facility] [address] [place] [address] END OF REPORT
--- NOTE | ~2018-03-12 | DS ---
PATIENT:DREW CHOU :42 MEDICAL RECORD: [id number] DISCHARGE SUMMARY ADMISSION DATE: 03/12/18 DISCHARGE DATE: 03/13/18 HOSPITAL COURSE: Ms. Chou was admitted on the day of surgery, underwent a ventriculoperitoneal shunt revision. She tolerated the procedure well, was discharged to home on postoperative day #2. DIET: Regular. ACTIVITY: Ad rony. Discharge medications were the same as admission medications. She is to follow up with Dr. Aj in 1 week. TRANSINT:[id number] Voice Confirmation ID: [id number] DOCUMENT ID: [id number] JEANNINE AJ MD at 0950 CC: [id number] DICTATION DATE: 04/04/18 1144 DIGITAL AD TRAFFICKER: 04/04/18 2322 DIS IN 03/13/18 [place] [place] [address]
--- NOTE | ~2018-03-12 | OP ---
PATIENT NAME: DREW GARCÍA MEDICAL RECORD: [id number] :42 LOCATION:D.MS [id number] ADMISSION DATE:03/12/18 SURGEON: JEANNINE AJ MD DATE OF OPERATION: 03/12/2018 PREOPERATIVE DIAGNOSIS: Ventriculoperitoneal shunt malfunction. 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 PROCEDURE: Ventriculoperitoneal shunt revision with replacement of valve. SURGEON: Jeannine Aj MD PRIMARY CARE DOCTOR: Rob Lopez MD DESCRIPTION AND TECHNIQUE: After induction of general endotracheal anesthesia, the patient was positioned supine on the operating table. The left frontoparietal occipital area as well as the chest and abdomen and neck were prepped and draped in usual sterile fashion. After sterile prep and drape, a 1:100,000 epinephrine and 1% lidocaine was infiltrated in the subcutaneous tissues overlying the left ventriculoperitoneal shunt valve. A previous incision was incised with a #10 blade. Using Bovie cautery, the previous valve was exposed. The peritoneal catheter was detached from the valve and there was no egress of spinal fluid from the valve. The valve was removed from the ventricular catheter portion of the shunt. There was brisk egress of CSF from the ventricular catheter. Next, a new level 1 pressure valve was used to replace the ventriculoperitoneal shunt valve that previously been there. The proximal end was attached to the ventricular catheter with 3-0 silk ties. The distal peritoneal catheter was flushed with vancomycin irrigant solution. A monometer was attached to the distal valve and there was runoff pressure of approximately 1 cm of water. Next, the peritoneal catheter was attached to the distal shunt valve and with a 3-0 silk suture. There was brisk egress of CSF through the valve upon pumping the valve. The subdermal layer was closed with interrupted 3-0 Vicryl suture. The skin was closed with janeen. A sterile dressing was applied to the wound. The patient was awakened in good condition and taken to recovery. All counts were reported as correct. Estimated blood loss was minimal. TRANSINT:[id number] Voice Confirmation ID: [id number] DOCUMENT ID: [id number] JEANNINE AJ MD at 0950 CC: [id number] DICTATION DATE: 04/04/18 1148 HOME PARAPROFESSIONAL: 04/04/18 1238 DIS IN 03/13/[address] [facility] [address] [place] [address]
--- NOTE | ~2018-03-12 | MORECARE ---
CASE MANAGEMENT DISCHARGE SUMMARY PATIENT: DREW GARCÍA UNIT: [id number] ADM DATE: 03/12/18 AGE: 78 : 41 SEX: F ROOM/BED: D.2230 AUTHOR: EDUARDOC PHYSICIAN: REFERRING PHYSICIAN: JEANNINE AJ MD DATE OF SERVICE: 03/13/18 Discharge Plan Patient Name: DREW GARCÍA Facility: [facility]:[place] : 1940 Planned Disposition: Assisted Living Anticipated Discharge Date: 03/13/18 Discharge Date: Expected LOS: 1 Initial Reviewer: [email or web address] Initial Review Date: 03/13/2018 Generated: 03/13/18 11:00 am Comments DCP- Discharge Planning Updated by [email or web address]: Kenia Jeffries on 03/13/18 8:[address] Patient Name: DREW GARCÍA Admission Status: Elective Accout number: [id number] Admission Date: 03-12-2018 : 1940 Admission Diagnosis: Attending: JEANNINE AJ Current LOS: 1 Anticipated DC Date: 03-13-2018 Planned Disposition: Assisted Living Primary Insurance: MEDICARE A & B Discharge Planning Comments: CM met with patient and daughter to discuss discharge planning. She lives at [facility]. Her daughter states she will take her home. States she uses her walker for ambulation and nurses give her medications, otherwise she is independent with ADL's. Her DCP is to return to [facility]. Denies need for additional DME or home health services. I called and spoke to the nurse at [facility] and clinical faxed to [phone] per request. membership coordinator and primary nurse given number to call report. CM will continue to follow and assist with discharge planning/needs. Janitorial Account Manager: Kenia Jeffries DCPIA - Discharge Planning Initial Assessment Updated by [email or web address]: Kenia Jeffries on 03/13/18 9:56 am * Is the patient Alert and Oriented? Yes * How many steps to enter\exit or inside your home? 0/0 * PCP Dr. Lopez * Pharmacy [facility] * Preadmission Environment Assisted Living * Facility Name [facility] * ADLs Partial Dependent * Partial ADLs (Assistance needed) Ambulation Medication Management * Equipment Rolling Walker * List name and contact numbers for known caregivers / representatives who currently or will assist patient after discharge: Raven Yanez * Verbal permission to speak to the caregivers and representatives has been obtained from the patient. Yes * Community resources currently utilized Assisted Living * Please name any agencies selected above. [facility] * Additional services required to return to the preadmission environment? No * Can the patient safely return to the preadmission environment? Yes * Has this patient been hospitalized within the prior 30 days at any hospital? No Patient Name: DREW GARCÍA Page [phone] at 1000 All edits/amendments must be made on the electronic document DICTATION DATE: 03/13/18 1000 EVENT MGR: TAMERA 03/13/18 1000 RPT#: [id number] DC DATE: STATUS: ADM IN [facility] [address] [place] [address] END OF REPORT
[~2018-03-12 11:30] MED LIST changes: +CELEBREX 100 M100 MG PO; +FLUTICASONE PRO16 GM NASAL; +MIRAPEX0.5 MG PO; -PROZAC10 MG PO; +PROZAC20 MG PO; +SINGULAIR10 MG PO
[2018-03-12 12:56] VITALS: BP 113/75; BMI 25.6
[2018-03-12 20:00] VITALS: BP 97/46
[2018-03-12 22:35] VITALS: BP 97/46; Ht 162.6 cm; Wt 67.3 kg
[2018-03-13 04:00] VITALS: BP 135/77
[2018-03-13 08:34] VITALS: BP 111/54
== END 2018-03-13 11:02 | disposition home or self-care (01) | DRG 33 ==
LOC: D.SDCHOLD 11:30 → D.MS 11:30 → D.SDCHOLD 13:45 → D.MS 19:44
PROVIDERS: Anesthesiology; Neurological Surgery
PROC: 00W60JZ Revision of Synthetic Substitute in Cerebral Ventricle, Open Approach (ICD-10-PCS; principal; 2018-03-12 13:45)
DX: G91.2 (Idiopathic) normal pressure hydrocephalus (principal)

== ENCOUNTER 2018-08-23 18:39 | Inpatient (IN) | payer MEDICARE ==
[~2018-08-23] VITALS: Ht 162.6 cm; Wt 66.4 kg
[2018-08-23 19:08] LABS: BASOPHILS 0.3 % (0-2); EOSINOPHILS 0.3 % (0-7); HEMATOCRIT 37.3 % (36.0-48.0); IMMATURE GRANULOCYTES 0.2 % (0-5); LYMPHOCYTES 4.3 % (15-50); MCH 28.8 pg (26.0-34.0); MCHC 32.2 g/dL (31.0-37.0); MCV 89.4 fL (80.0-100.0); MEAN PLATELET VOLUME 9.2 fL (7.4-10.4); MONOCYTES 9.5 % (2-11); NEUTROPHILS 85.4 % (40-80); PLATELET COUNT 253 10x3/uL (130-400); RBC 4.17 10x6/uL (4.00-5.40); RDW 14.6 % (11.5-14.5)
--- NOTE | 2018-08-23 19:30 | NUR ---
PT RESTING ON BED, PT DAUGHTER AT BEDSIDE. PT DENIES DISCOMFORT AT THIS TIME.
[2018-08-23 19:32] VITALS: BP 157/91
[2018-08-23 19:34] LABS: ALBUMIN 3.2 g/dL (3.4-5.0); ANION GAP 12.1 mmol/L (8-16); BILIRUBIN - TOTAL 0.24 mg/dL (0.2-1.3); CALCIUM 8.6 mg/dL (8.5-10.1); CARBON DIOXIDE 28.6 mmol/L (21.0-32.0); CREATININE - SERUM 0.9 mg/dL (0.6-1.3); POTASSIUM - SERUM 3.7 mmol/L (3.5-5.1); PROTEIN - SERUM 7.3 g/dL (6.4-8.2)
[2018-08-23 19:54] LABS: APPEARANCE CLOUDY (CLEAR); BILIRUBIN NEGATIVE (NEGATIVE); COLOR STRAW (YELLOW); GLUCOSE NEGATIVE (NEGATIVE); KETONE NEGATIVE (NEGATIVE); NITRITE POSITIVE (NEGATIVE); PROTEIN TRACE mg/dL (NEGATIVE); UROBILINOGEN NORMAL (NORMAL)
[2018-08-23 19:56] LABS: BACTERIA MANY /hpf (NONE SEEN); RED CELLS - URINE 0-5 /hpf (0-5)
[2018-08-23 20:02] LABS: PRO BNP 565 pg/mL (0-450)
[2018-08-23 20:05] LABS: TROPONIN-I < 0.017 ng/mL (0.000-0.060)
--- NOTE | 2018-08-23 20:22 | NUR ---
PT UPDATED ON PLAN OF CARE. PT FAMILY AT BEDSIDE. NO S/S OF ACUTE DISTRESS NOTED.
[2018-08-23 20:30] VITALS: BP 124/49
--- NOTE | 2018-08-23 21:40 | NUR ---
RECEIVED FROM ER VIA WC. TRANSFERED HERSELF TO THE BED. ALERT/ORIENTED X4. HOOKED UP TO O2 AT 2L/NC STARTED IN ER. 20G IV IN LT HAND WITH NS INFUSING AT 75ML/HR. DENIES PAIN. REQUESTED A LEMON-AKIACHAK SODA AND BSC. HER DAUGHTER IS PRESENT IN ROOM. ORIENTED TO THE ROOM AND CALL LIGHT. BED IS LOW WITH SR UP X2.
[2018-08-24 00:14] VITALS: BP 114/56; BMI 25.3
--- NOTE | 2018-08-24 02:00 | NUR ---
WATCHING TV. WITH CALL LIGHT UP TO HER EAR. DENIES ANY NEEDS OR DISCOMFORTS.
--- NOTE | 2018-08-24 04:31 | NUR ---
ADMIN TYLENOL 500 MG PO PER REQUEST FOR C/O PAIN LEVEL 8 ON NUMBER SCALE, DESCRIBED ACHING "ALL OVER".
--- NOTE | 2018-08-24 05:45 | NUR ---
DID FLU SWAB AND SENT TO LAB.
[2018-08-24 06:01] VITALS: BP 140/80
--- NOTE | 2018-08-24 07:22 | NUR ---
ROUNDING DONE WITH PATIENT LAYING ON BACK, GLASSES ON. DENIES NEEDS AT THIS TIME. ON 2L PER NC. LEFT HAND PIV SEEN WITH NS INFUSING AT 75 CC/HR. RESE. RIGHT ARM FROM PAST LUMBECTOMY. BSC AT BEDSIDE. WILL MONITOR.
[2018-08-24 07:48] VITALS: BP 118/53
--- NOTE | 2018-08-24 10:12 | NUR ---
NON SKID SOCKS PLACED ON PATIENT. REFUSES TO WEAR THE SCD'S ORDERED.
--- NOTE | 2018-08-24 10:28 | NUR ---
[facility] PLACED INTO BSC FOR URINE CULTURE TO BE OBTAINED.
--- NOTE | 2018-08-24 10:41 | NUR ---
I CALLED ISHA IN THE PHARMACY FOR CLEBREX AND MIRAPEX.
[2018-08-24 11:15] LABS: CALCIUM 7.8 mg/dL (8.5-10.1); CARBON DIOXIDE 30.8 mmol/L (21.0-32.0); CHLORIDE - SERUM 110 mmol/L (98-107); POTASSIUM - SERUM 3.7 mmol/L (3.5-5.1); SODIUM 145 mmol/L (136-145)
[2018-08-24 11:20] VITALS: BP 111/55
[2018-08-24 11:20] LABS: CALC OSMOLALITY 287 mosm/kg (275-300); CREATININE - SERUM 0.6 mg/dL (0.6-1.3); GLUCOSE 90 mg/dL (74-106); UREA NITROGEN 10 mg/dL (7-18); eGFR NON AFRICAN AMERICAN > 90 mL/min (90-120)
[2018-08-24 11:31] LABS: HEMATOCRIT 32.9 % (36.0-48.0); HEMOGLOBIN 10.9 g/dL (12-16); LYMPHOCYTES 17.8 % (15-50); MCHC 33.1 g/dL (31.0-37.0); MCV 90.6 fL (80.0-100.0); NEUTROPHILS 75.3 % (40-80); PLATELET COUNT 241 10x3/uL (130-400); RBC 3.63 10x6/uL (4.00-5.40); RDW 14.5 % (11.5-14.5)
[2018-08-24 11:32] LABS: WBC 11.4 10x3/uL (4.8-10.8)
--- NOTE | 2018-08-24 11:45 | NUR ---
UNABLE TO OBTAIN URINE OR STOOL PATIENT HAD MIXED IN [facility].
[2018-08-24 12:12] VITALS: Ht 162.6 cm; Wt 66.4 kg
--- NOTE | 2018-08-24 12:32 | NUR ---
UA AND STOOL SENT TO LAB ORDERED.
--- NOTE | 2018-08-24 13:36 | NUR ---
PLACED ON HEART MONITOR ORDERED.
--- NOTE | 2018-08-24 13:49 | NUR ---
KLONOPIN 0.5 MG GIVEN PER REQUEST. SHOWING SR W OCC PAC'S, HR 70 ON HEART MONITOR.
[2018-08-24 14:41] VITALS: BP 116/59
--- NOTE | 2018-08-24 15:20 | NUR ---
MIRAPEX WAS GIVEN ORDERED. REQUESTS LIGHTS OUT FOR NAP, DONE.
--- NOTE | 2018-08-24 15:59 | NUR ---
VISITING WITH FEMALE MEMBER IN ROOM. IV IS GOING OFF, FLUSHES EASILY. I ASKED PATIENT IF SHE WANTED ME TO RE-SITE IT AND SHE SAID NO. NO S/S OF INFILTRATION SEEN, NO REDNESS.
--- NOTE | 2018-08-24 16:20 | NUR ---
IV RE-SITED TO LEFT WRIST WITH 22 G X 1 STICK. LEFT HAND IV CATH REMOVED WITH CATH TIP INTACT.
--- NOTE | 2018-08-24 19:05 | NUR ---
ALERT/AWAKE TALKING ON HER PHONE. DENIES ANY NEEDS OR DISCOMFORTS. IV IN L WRIST WITH NS INFUSINGS AT 75ML/HR. ORIENTED TO CALL LIGHT FOR ANY NEEDS.
--- NOTE | 2018-08-24 21:10 | NUR ---
ADMIN SCHED MEDS AND CLONOPIN 0.5MG PER HER REQUEST. REQUESTED SALTINE CRACKERS AND LEMON-RESIGHINI SODA.
[2018-08-24 21:48] VITALS: BP 131/61
[2018-08-25 05:55] VITALS: BP 138/59
[2018-08-25 06:17] LABS: CALC OSMOLALITY 292 mosm/kg (275-300); CALCIUM 7.8 mg/dL (8.5-10.1); CARBON DIOXIDE 27.3 mmol/L (21.0-32.0); CHLORIDE - SERUM 113 mmol/L (98-107); CREATININE - SERUM 0.6 mg/dL (0.6-1.3); GLUCOSE 88 mg/dL (74-106); POTASSIUM - SERUM 3.4 mmol/L (3.5-5.1); SODIUM 149 mmol/L (136-145); UREA NITROGEN 8 mg/dL (7-18); eGFR NON AFRICAN AMERICAN > 90 mL/min (90-120)
[2018-08-25 06:27] LABS: BASOPHILS 0.7 % (0-2); EOSINOPHILS 4.8 % (0-7); HEMATOCRIT 33.1 % (36.0-48.0); HEMOGLOBIN 10.5 g/dL (12-16); LYMPHOCYTES 29.4 % (15-50); MCH 28.8 pg (26.0-34.0); MCHC 31.7 g/dL (31.0-37.0); MCV 90.9 fL (80.0-100.0); MEAN PLATELET VOLUME 9.5 fL (7.4-10.4); MONOCYTES 6.3 % (2-11); NEUTROPHILS 58.8 % (40-80); PLATELET COUNT 255 10x3/uL (130-400); RBC 3.64 10x6/uL (4.00-5.40); RDW 14.8 % (11.5-14.5)
[2018-08-25 06:45] LABS: WBC 7.1 10x3/uL (4.8-10.8)
--- NOTE | 2018-08-25 07:33 | NUR ---
ROUNDING DONE WITH PATIENT ON ROOM AIR. DENIES NEEDS AT THIS TIME. ON EP, K+ IS 3.4, THIS WAS COVERED WITH ORAL SUPPLEMENTS. NEW LAB ORDERED TIMED. LEFT WRIST PIV SEEN WITH NS INFUSING AT 75 CC/HR, BSC AT BEDSIDE. RES. RIGHT ARM FROM PAST HX LUMPECTOMY.
[2018-08-25 08:07] VITALS: BP 146/66
[2018-08-25] MEDS ORDERED: LEVAQUIN750 MG PO (11:10)
[2018-08-25] MEDS ORDERED: FLAGYL500 MG PO (11:11)
[2018-08-25 11:25] VITALS: BP 169/74
--- NOTE | 2018-08-25 13:07 | MORECARE ---
CASE MANAGEMENT DISCHARGE SUMMARY PATIENT: DREW GARCÍA UNIT: [id number] ADM DATE: 08/23/18 AGE: 78 : 41 SEX: F ROOM/BED: D.2107 AUTHOR: GÓMEZ WITT PHYSICIAN: REFERRING PHYSICIAN: GRUPO SELF MD DATE OF SERVICE: 08/25/18 Discharge Plan Patient Name: DREW GARCÍA Facility: [facility]:[place] : 1940 Planned Disposition: Home Anticipated Discharge Date: 08/25/18 Discharge Date: Expected LOS: 2 Initial Reviewer: [email or web address] Initial Review Date: 08/25/2018 Generated: 08/25/18 2:07 pm DCPIA - Discharge Planning Initial Assessment Updated by [email or web address]: Oz Pedersen on 08/25/18 1:06 pm * Is the patient Alert and Oriented? Yes * How many steps to enter\exit or inside your home? NONE * PCP DR. DE PAZ * Pharmacy [facility] * Preadmission Environment Assisted Living * Facility Name [facility], * ADLs Partial Dependent * Partial ADLs (Assistance needed) Medication Management * Equipment Rolling Walker * Other Equipment WALKER WITH 4 WHEELS, SEAT AND BRAKES NO MEDICAL EQUIPMENT PROVIDER PREFERENCE * List name and contact numbers for known caregivers / representatives who currently or will assist patient after discharge: JACOB LEDBETTER DTR, * Verbal permission to speak to the caregivers and representatives has been obtained from the patient. N/A * Community resources currently utilized None * Please name any agencies selected above. NONE * Additional services required to return to the preadmission environment? No * Can the patient safely return to the preadmission environment? Yes * Has this patient been hospitalized within the prior 30 days at any hospital? No Patient Name: DREW GARCÍA Page 52442 at 1307 All edits/amendments must be made on the electronic document DICTATION DATE: 08/25/18 1306 CHAMBER WORKER: TAMERA 08/25/18 1306 RPT#: [id number] DC DATE: STATUS: ADM IN [facility] [address] [place] [address] END OF REPORT
--- NOTE | 2018-08-25 13:14 | MORECARE ---
CASE MANAGEMENT DISCHARGE SUMMARY PATIENT: DREW GARCÍA UNIT: [id number] ADM DATE: 08/23/18 AGE: 78 : 41 SEX: F ROOM/BED: D.2882 AUTHOR: EDUAR,DOC PHYSICIAN: REFERRING PHYSICIAN: GRUPO SELF MD DATE OF SERVICE: 08/25/18 Discharge Plan Patient Name: DREW GARCÍA Facility: [facility]:[place] : 1940 Planned Disposition: Assisted Living Anticipated Discharge Date: 08/25/18 Discharge Date: Expected LOS: 2 Initial Reviewer: [email or web address] Initial Review Date: 08/25/2018 Generated: 08/25/18 2:14 pm Comments DCP- Discharge Planning Updated by [email or web address]: Oz Pedersen on 08/25/18 12:[address] Patient Name: DREW GARCÍA Admission Status: ER Accout number: [id number] Admission Date: 08-23-2018 : 1940 Admission Diagnosis:UNSPECIFIED ABDOMINAL PAIN Attending: GRUPO SELF Current LOS: 2 Anticipated DC Date: 08-25-2018 Planned Disposition: Assisted Living Primary Insurance: MEDICARE A & B PLANNED EXTERNAL PROVIDER: [facility] Discharge Planning Comments: CM MET WITH PT IN ROOM TO DISCUSS DISCHARGE PLANNING AND NEEDS. PT REPORTS LIVING ALONE AT [facility]. PT REPORTS ASSISTANCE WITH MEDICATION MANAGEMENT, TRANSPORTATION AND MEAL PREPARATION. PT HAS HOUSEKEEPING SERVICES. PT HAS WALKER WITH FOUR WHEELS AND SEAT AND NO MEDICAL EQUIPMENT PROVIDER PREFERNECE. PT HAS NO OUTSIDE SERVICES ASSISTING IN THE HOME. CM DISCUSSED AVAILABILITY OF HOME HEALTH, REHAB SERVICES AND MEDICAL EQUIPMENT. PT DENIES DISCHARGE NEEDS, REPORTS HER DAUGHTER WILL PICK HER UP FOR DISCHARGE HOME. CM CALLED [facility], , SPOKE TO JOHANNY WHO ASKED FOR NURSE TO CALL REPORT AND CM TO FAX DISCHARGE INFORMATION. CM FAXED DISCHARGE INFORMATION TO [facility] AT [phone]. ASSISTANT CHIEF TRAIN DISPATCHER NURSE NOTIFIED. NURSE REPORT TO BE CALLED TO [facility] AT [phone], PT'S DAUGHTER TO TRANSPORT PT BACK TO [facility] AT DISCHARGE TODAY. Ironer Hand: Oz Pedersen DCPIA - Discharge Planning Initial Assessment Updated by [email or web address]: Oz Pedersen on 08/25/18 1:06 pm * Is the patient Alert and Oriented? Yes * How many steps to enter\exit or inside your home? NONE * PCP DR. DE PAZ * Pharmacy [facility] * Preadmission Environment Assisted Living * Facility Name [facility], * ADLs Partial Dependent * Partial ADLs (Assistance needed) Medication Management * Equipment Rolling Walker * Other Equipment WALKER WITH 4 WHEELS, SEAT AND BRAKES NO MEDICAL EQUIPMENT PROVIDER PREFERENCE * List name and contact numbers for known caregivers / representatives who currently or will assist patient after discharge: JACOB LEDBETTER DTR, * Verbal permission to speak to the caregivers and representatives has been obtained from the patient. N/A * Community resources currently utilized None * Please name any agencies selected above. NONE * Additional services required to return to the preadmission environment? No * Can the patient safely return to the preadmission environment? Yes * Has this patient been hospitalized within the prior 30 days at any hospital? No Last DP export: 08/25/18 12:07 p Patient Name: DREW GARCÍA Page [phone] at 1314 All edits/amendments must be made on the electronic document DICTATION DATE: 08/25/181313 INGREDIENT HANDLER: TAMERA 08/25/181313 RPT#: [id number] DC DATE: STATUS: ADM IN [facility] [address] [place] [address] END OF REPORT
--- NOTE | 2018-08-25 13:22 | MORECARE ---
CASE MANAGEMENT DISCHARGE SUMMARY PATIENT: DREW GARCÍA UNIT: [id number] ADM DATE: 08/23/18 AGE: 78 : 41 SEX: F ROOM/BED: D.8469 AUTHOR: EDUAR,DOC PHYSICIAN: REFERRING PHYSICIAN: GRUPO SELF MD DATE OF SERVICE: 08/25/18 Discharge Plan Patient Name: DREW GARCÍA Facility: [facility]:[place] : 1940 Planned Disposition: Assisted Living Anticipated Discharge Date: 08/25/18 Discharge Date: Expected LOS: 2 Initial Reviewer: [email or web address] Initial Review Date: 08/25/2018 Generated: 08/25/18 2:22 pm Comments DCP- Discharge Planning Updated by [email or web address]: Oz Pedersen on 08/25/18 12:[address] Patient Name: DREW GARCÍA Admission Status: ER Accout number: [id number] Admission Date: 08-23-2018 : 1940 Admission Diagnosis:UNSPECIFIED ABDOMINAL PAIN Attending: GRUPO SELF Current LOS: 2 Anticipated DC Date: 08-25-2018 Planned Disposition: Assisted Living Primary Insurance: MEDICARE A & B PLANNED EXTERNAL PROVIDER: [facility] Discharge Planning Comments: CM MET WITH PT IN ROOM TO DISCUSS DISCHARGE PLANNING AND NEEDS. PT REPORTS LIVING ALONE AT [facility]. PT REPORTS ASSISTANCE WITH MEDICATION MANAGEMENT, TRANSPORTATION AND MEAL PREPARATION. PT HAS HOUSEKEEPING SERVICES. PT HAS WALKER WITH FOUR WHEELS AND SEAT AND NO MEDICAL EQUIPMENT PROVIDER PREFERNECE. PT HAS NO OUTSIDE SERVICES ASSISTING IN THE HOME. CM DISCUSSED AVAILABILITY OF HOME HEALTH, REHAB SERVICES AND MEDICAL EQUIPMENT. PT DENIES DISCHARGE NEEDS, REPORTS HER DAUGHTER WILL PICK HER UP FOR DISCHARGE HOME. CM CALLED [facility], , SPOKE TO JOHANNY WHO ASKED FOR NURSE TO CALL REPORT AND CM TO FAX DISCHARGE INFORMATION. CM FAXED DISCHARGE INFORMATION TO [facility] AT [phone]. STORAGE MANAGER NURSE NOTIFIED. NURSE REPORT TO BE CALLED TO [facility] AT [phone], PT'S DAUGHTER TO TRANSPORT PT BACK TO [facility] AT DISCHARGE TODAY. Detail Sergeant: Oz Pedersen DCPIA - Discharge Planning Initial Assessment Updated by [email or web address]: Oz Pedersen on 08/25/18 1:06 pm * Is the patient Alert and Oriented? Yes * How many steps to enter\exit or inside your home? NONE * PCP DR. DE PAZ * Pharmacy [facility] * Preadmission Environment Assisted Living * Facility Name [facility], * ADLs Partial Dependent * Partial ADLs (Assistance needed) Medication Management * Equipment Rolling Walker * Other Equipment WALKER WITH 4 WHEELS, SEAT AND BRAKES NO MEDICAL EQUIPMENT PROVIDER PREFERENCE * List name and contact numbers for known caregivers / representatives who currently or will assist patient after discharge: JACOB LEDBETTER DTR, * Verbal permission to speak to the caregivers and representatives has been obtained from the patient. N/A * Community resources currently utilized None * Please name any agencies selected above. NONE * Additional services required to return to the preadmission environment? No * Can the patient safely return to the preadmission environment? Yes * Has this patient been hospitalized within the prior 30 days at any hospital? No External Providers External Provider: Barry Tuttle Next Contact Date: 08/25/2018 Service Request Date: Service Type: Resolution: Reviewer: Comments: Last DP export: 08/25/18 12:14 p Patient Name: DREW GARCÍA Page [phone] at 1322 All edits/amendments must be made on the electronic document DICTATION DATE: 08/25/18 1321 DIRECTOR OUTCOMES: TAMERA 08/25/18 1321 RPT#: [id number] [place] DATE: STATUS: ADM IN [facility] [address] [place] [address] END OF REPORT
--- NOTE | 2018-08-25 13:44 | NUR ---
HEART MONTIOR IS TURNED IN PATIENT IS BEING DISCHARGED.
--- NOTE | 2018-08-25 14:00 | NUR ---
REPORT IS CALLED TO LUCIANA ANTONIO AT [facility]. I TOLD HER THAT PATIENT'S DAUGHTER WILL BE BY TO PICK HER UP.
--- NOTE | 2018-08-25 14:03 | NUR ---
PATIENT IS WAITING ON DAUGHTER TO COME GET HER.
--- NOTE | 2018-08-25 15:16 | NUR ---
SALINE LOCK REMOVED WITH CATH TIP INTACT. VERBAL AND WRITTEN DISCHARGE INSTRUCTIONS GIVEN TO PATIENT. DISCHARGED VIA WHEELCHAIR.
[2018-08-25 15:19] VITALS: BP 174/60
== END 2018-08-25 15:21 | disposition home or self-care (01) | DRG 872 ==
LOC: D.ER 18:39 → D.M2 20:50
PROVIDERS: Family Medicine; Internal Medicine Nephrology; ADMIT Family Medicine; ATTEND Family Medicine
DX: A41.9 Sepsis, unspecified organism (principal); N39.0 Urinary tract infection, site not specified; A04.72 Enterocolitis due to Clostridium difficile, not specified as recurrent; E78.5 Hyperlipidemia, unspecified; I48.91 Unspecified atrial fibrillation; K21.9 Gastro-esophageal reflux disease without esophagitis; J44.9 Chronic obstructive pulmonary disease, unspecified; K58.0 Irritable bowel syndrome with diarrhea; F41.9 Anxiety disorder, unspecified; F32.9 Major depressive disorder, single episode, unspecified; D64.9 Anemia, unspecified; Z85.3 Personal history of malignant neoplasm of breast; F03.90 Unspecified dementia, unspecified severity, without behavioral disturbance, psychotic disturbance, mood disturbance, and anxiety

== ENCOUNTER → 2018-11-02 13:51 | Outpatient (CLI) | payer MEDICARE ==
[2018-08-24 12:12] VITALS: BMI 25.2
[~2018-11-02 13:51] MED LIST changes: +FLAGYL500 MG PO; +LEVAQUIN750 MG PO
== END | disposition home or self-care (01) ==
LOC: D.RT 13:51
PROVIDERS: ATTEND Internal Medicine Pulmonary Disease
DX: J44.9 Chronic obstructive pulmonary disease, unspecified (principal)

== ENCOUNTER 2019-10-26 16:07 | Inpatient (IN) | payer MEDICARE ==
[~2019-10-26] VITALS: Ht 162.6 cm; Wt 62.9 kg
[2019-10-26] MEDS ORDERED: CLARITIN 10 MG10 MG PO (16:16)
[2019-10-26] MEDS ORDERED: AZELASTINE137 MCG/0. NASAL (16:16)
[2019-10-26] MEDS ORDERED: HYDROCODON-ACE1 EA10 PO (16:17)
[2019-10-26] MEDS ORDERED: METHOCARBAMOL500 MG PO (16:18)
[2019-10-26] MEDS ORDERED: MECLIZINE HCL25 MG PO (16:18)
[2019-10-26] MEDS ORDERED: ULTRAM50 MG PO (16:19)
[2019-10-26] MEDS ORDERED: MUCINEX600 MG PO (16:19)
[2019-10-26] MEDS ORDERED: SYMBICORT 80-10.2 GM INH (16:19)
[2019-10-26] MEDS ORDERED: VITAMIN D2 (16:20)
[2019-10-26] MEDS ORDERED: ZOFRAN4 MG PO (16:21)
[2019-10-26 16:30] VITALS: BP 108/52
[2019-10-26 16:59] LABS: BASOPHILS 0.5 % (0-2); EOSINOPHILS 0.9 % (0-7); HEMATOCRIT 38.7 % (36.0-48.0); HEMOGLOBIN 11.7 g/dL (12-16); IMMATURE GRANULOCYTES 0.2 % (0-5); LYMPHOCYTES 20.1 % (15-50); MCH 27.5 pg (26.0-34.0); MCHC 30.2 g/dL (31.0-37.0); MCV 91.1 fL (80.0-100.0); MEAN PLATELET VOLUME 9.1 fL (7.4-10.4); MONOCYTES 11.9 % (2-11); NEUTROPHILS 66.4 % (40-80); PLATELET COUNT 239 10x3/uL (130-400); RBC 4.25 10x6/uL (4.00-5.40); WBC 5.5 10x3/uL (4.8-10.8)
[2019-10-26 17:00] VITALS: BP 115/47
[2019-10-26 17:16] LABS: APTT 27.5 SECONDS (22.8-39.4); INR 1.17 (0.85-1.17); PROTIME 14.9 SECONDS (11.6-15.0)
[2019-10-26 17:19] LABS: CALC OSMOLALITY 286 mosm/kg (275-300); CALCIUM 8.8 mg/dL (8.5-10.1); CARBON DIOXIDE 33.4 mmol/L (21.0-32.0); CHLORIDE - SERUM 106 mmol/L (98-107); GLUCOSE 109 mg/dL (74-106); POTASSIUM - SERUM 3.9 mmol/L (3.5-5.1); SODIUM 143 mmol/L (136-145); UREA NITROGEN 16 mg/dL (7-18); eGFR NON AFRICAN AMERICAN 57 mL/min (90-120)
[2019-10-26 17:21] LABS: D-DIMER-QUANTITATIVE 2.17 ug/mLFEU (0.20-0.54)
--- NOTE | 2019-10-26 17:24 | NUR ---
ERP INFORMED OF ELEVATED D-DIMMER OF 2.17
[2019-10-26 17:40] LABS: ALBUMIN 2.9 g/dL (3.4-5.0); ALKALINE PHOSPHATASE 41 U/L (30-120); ALT (SGPT) 10 U/L (10-68); BILIRUBIN - TOTAL 0.23 mg/dL (0.2-1.3); CKMB 0.7 U/L (0.0-3.6); CREATINE KINASE 89 UL (21-215); MAGNESIUM - SERUM 1.9 mg/dL (1.8-2.4); PROTEIN - SERUM 6.7 g/dL (6.4-8.2); TROPONIN-I < 0.017 ng/mL (0.000-0.060)
[2019-10-26 18:00] VITALS: BP 114/52
[2019-10-26 19:00] VITALS: BP 129/60
--- NOTE | 2019-10-26 19:13 | NUR ---
REPORT TO ANDREA ORNELAS
[2019-10-26 19:14] LABS: SPECIFIC GRAVITY 1.025 (1.005-1.020)
[2019-10-26 19:15] LABS: BILIRUBIN NEGATIVE (NEGATIVE); GLUCOSE NEGATIVE (NEGATIVE); KETONE NEGATIVE (NEGATIVE); NITRITE NEGATIVE (NEGATIVE); UROBILINOGEN NORMAL (NORMAL)
--- NOTE | 2019-10-26 20:02 | NUR ---
PT UP TO BEDSIDE COMMODE. VOIDED URINE AT THIS TIME. MEDARDO CARE PROVIDED PER PT. PT REPOSITIONED IN BED.
[2019-10-26 21:17] VITALS: BMI 23.8
[2019-10-26 23:33] LABS: CREATINE KINASE 101 UL (21-215)
[2019-10-26 23:35] LABS: TROPONIN-I < 0.017 ng/mL (0.000-0.060)
[2019-10-27] MEDS ORDERED: ALENDRONAT70 MG/75 M PO (04:49)
[2019-10-27] MEDS ORDERED: BACLOFEN10 MG PO (04:50)
[2019-10-27 05:21] LABS: BASOPHILS 1.5 % (0-2); EOSINOPHILS 4.2 % (0-7); HEMATOCRIT 38.6 % (36.0-48.0); HEMOGLOBIN 11.6 g/dL (12-16); IMMATURE GRANULOCYTES 0.2 % (0-5); LYMPHOCYTES 25.4 % (15-50); MCH 27.3 pg (26.0-34.0); MCHC 30.1 g/dL (31.0-37.0); MCV 90.8 fL (80.0-100.0); MEAN PLATELET VOLUME 9.7 fL (7.4-10.4); MONOCYTES 13.8 % (2-11); NEUTROPHILS 54.9 % (40-80); PLATELET COUNT 257 10x3/uL (130-400); RBC 4.25 10x6/uL (4.00-5.40); RDW 14.8 % (11.5-14.5); WBC 5.2 10x3/uL (4.8-10.8)
[2019-10-27 05:52] LABS: ALBUMIN 2.9 g/dL (3.4-5.0); ALKALINE PHOSPHATASE 35 U/L (30-120); ALT (SGPT) 9 U/L (10-68); BILIRUBIN - TOTAL 0.32 mg/dL (0.2-1.3); CALC OSMOLALITY 279 mosm/kg (275-300); CALCIUM 8.2 mg/dL (8.5-10.1); CARBON DIOXIDE 30.5 mmol/L (21.0-32.0); CHLORIDE - SERUM 105 mmol/L (98-107); CKMB 1.1 U/L (0.0-3.6); CREATINE KINASE 117 UL (21-215); GLUCOSE 83 mg/dL (74-106); POTASSIUM - SERUM 3.6 mmol/L (3.5-5.1); PROTEIN - SERUM 6.6 g/dL (6.4-8.2); SODIUM 141 mmol/L (136-145); UREA NITROGEN 13 mg/dL (7-18)
[2019-10-27 05:54] LABS: CREATININE - SERUM 0.7 mg/dL (0.6-1.3); TROPONIN-I < 0.017 ng/mL (0.000-0.060); eGFR NON AFRICAN AMERICAN 86 mL/min (90-120)
[2019-10-27 08:53] VITALS: BP 129/66
--- NOTE | 2019-10-27 19:50 | NUR ---
PT WAS FOUND IN THE FLOOR WHEN THIS NURSE ENTERED THE ROOM. PT WAS FACE DOWN HOLDING HERSELF UP WITH HER ELBOWS. PT STATED SHE WAS TYRING TO CLEAN HERSELF UP AND SLIPPED.
--- NOTE | 2019-10-27 19:53 | NUR ---
PT STATED THAT SHE DOES NOT WANT HER DAUGHTER CONTACTED OR INFORMED OF HER RECENT FALL.
--- NOTE | 2019-10-27 20:16 | NUR ---
PAGED [facility] AT THIS TIME DUE TO PT FALL. HUDDLE WITH COOKING APPLIANCE REPAIR TECHNICIAN COMPLETE. ALL FALL PERCAUTIONS IN PLACE. VIDEO MONITOR ADDED TO ROOM FOR PT SAFETY. CL IN REACH, BED IN LOWEST POSITION.
--- NOTE | 2019-10-27 20:19 | NUR ---
FELICIA CONNOR APN MADE AWARE OF PT FALL. NO NEW ORDERS AT THIS TIME.
--- NOTE | 2019-10-28 04:01 | NUR ---
PT WAS ATTEMPTING TO GET OUT OF BED. PT WAS WANTING TO USE THE BATHROOM, BED BANKS PROVIDED. PT WAS CONFUSED TO TIME AND SITUATION. REORIENTED PT TO TIME AND SITUATION. PT IS HAVING A HARD TIME ACCEPTING NOT BEING ABLE TO GET UP ON HER OWN. TEACHING ON IMPORTANCE ON USING CALL LIGHT. CL IN REACH, BED IN LOWEST POSITION.
[2019-10-28 05:33] LABS: BASOPHILS 0.5 % (0-2); EOSINOPHILS 1.2 % (0-7); HEMATOCRIT 38.2 % (36.0-48.0); HEMOGLOBIN 11.8 g/dL (12-16); IMMATURE GRANULOCYTES 0.2 % (0-5); LYMPHOCYTES 20.3 % (15-50); MCH 27.4 pg (26.0-34.0); MCHC 30.9 g/dL (31.0-37.0); MEAN PLATELET VOLUME 9.7 fL (7.4-10.4); MONOCYTES 12.2 % (2-11); NEUTROPHILS 65.6 % (40-80); PLATELET COUNT 240 10x3/uL (130-400); RBC 4.31 10x6/uL (4.00-5.40); RDW 14.6 % (11.5-14.5); WBC 6.4 10x3/uL (4.8-10.8)
[2019-10-28 05:46] LABS: MCV 88.6 fL (80.0-100.0)
[2019-10-28 05:57] LABS: ALKALINE PHOSPHATASE 37 U/L (30-120); ALT (SGPT) 11 U/L (10-68); BILIRUBIN - TOTAL 0.33 mg/dL (0.2-1.3); CARBON DIOXIDE 28.8 mmol/L (21.0-32.0); CHLORIDE - SERUM 107 mmol/L (98-107); CREATININE - SERUM 0.6 mg/dL (0.6-1.3); GLUCOSE 90 mg/dL (74-106); POTASSIUM - SERUM 3.3 mmol/L (3.5-5.1); PROTEIN - SERUM 6.7 g/dL (6.4-8.2); SODIUM 142 mmol/L (136-145); eGFR NON AFRICAN AMERICAN > 90 mL/min (90-120)
[2019-10-28 05:58] LABS: CALC OSMOLALITY 280 mosm/kg (275-300); UREA NITROGEN 7 mg/dL (7-18)
[2019-10-28 10:06] VITALS: BP 121/58
[2019-10-28 13:11] VITALS: BP 135/51
[2019-10-28 16:35] VITALS: BP 128/60
--- NOTE | 2019-10-28 19:15 | NUR ---
PT EXPRESSES NEED FOR PAIN MED AND SOMETHING FOR NAUSEA... BED LOW AND LOCKED ALSO IV IS BURNING IV IS GOING AT 250 I TURNED IT DOWN TO 125 PT SAID BURNING STOPPED IV SITE IS WNL
[2019-10-28 20:00] VITALS: BP 109/57
--- NOTE | 2019-10-29 00:34 | NUR ---
ASKED FOR AND RECIEVED AVE AT THIS TIME CO NEVOUSNESS
[2019-10-29 04:00] VITALS: BP 137/61
[2019-10-29 05:09] LABS: BASOPHILS 0.4 % (0-2); EOSINOPHILS 1.6 % (0-7); HEMOGLOBIN 10.5 g/dL (12-16); IMMATURE GRANULOCYTES 0.1 % (0-5); LYMPHOCYTES 21.4 % (15-50); MCH 26.5 pg (26.0-34.0); MCHC 29.2 g/dL (31.0-37.0); MEAN PLATELET VOLUME 9.4 fL (7.4-10.4); MONOCYTES 12.1 % (2-11); NEUTROPHILS 64.4 % (40-80); PLATELET COUNT 247 10x3/uL (130-400); RBC 3.96 10x6/uL (4.00-5.40); WBC 7.1 10x3/uL (4.8-10.8)
[2019-10-29 05:27] LABS: MCV 90.9 fL (80.0-100.0)
[2019-10-29 05:46] LABS: ALBUMIN 2.6 g/dL (3.4-5.0); ALKALINE PHOSPHATASE 31 U/L (30-120); ALT (SGPT) 12 U/L (10-68); BILIRUBIN - TOTAL 0.25 mg/dL (0.2-1.3); CALC OSMOLALITY 281 mosm/kg (275-300); CALCIUM 7.8 mg/dL (8.5-10.1); CARBON DIOXIDE 31.1 mmol/L (21.0-32.0); CHLORIDE - SERUM 107 mmol/L (98-107); CREATININE - SERUM 0.7 mg/dL (0.6-1.3); GLUCOSE 87 mg/dL (74-106); MAGNESIUM - SERUM 2.1 mg/dL (1.8-2.4); PROTEIN - SERUM 6.1 g/dL (6.4-8.2); SODIUM 143 mmol/L (136-145); UREA NITROGEN 7 mg/dL (7-18); eGFR NON AFRICAN AMERICAN 86 mL/min (90-120)
[2019-10-29 05:53] LABS: POTASSIUM - SERUM 3.6 mmol/L (3.5-5.1)
--- NOTE | 2019-10-29 06:17 | NUR ---
IV WAS LEAKING EARLIER IN SHIFT I HAD DCED FLUIDS AND I CHECKED NOW AND INDEED INFILTRATION HAS ACURED DCED CATH INTACT AND STARTED NEW 22 GAUGE TO LEFT FA PUT TO TKO AT 15 AND WILL ADJUST FLUID RATE UP IF IV REMAINS INTACT SHIREEN IS SMALL
--- NOTE | 2019-10-29 08:00 | NUR ---
PT RECEIVED AWAKE ALERT IN BED. [facility] CALLED AND UPDATE GIVEN.
[2019-10-29 10:36] VITALS: BP 135/68
[2019-10-29 13:20] VITALS: Ht 162.6 cm; Wt 62.9 kg
--- NOTE | 2019-10-29 13:22 | MORECARE ---
CASE MANAGEMENT DISCHARGE SUMMARY PATIENT: DREW GARCÍA UNIT: [id number] ADM DATE: 10/26/19 AGE: 79 : 41 SEX: F ROOM/BED: D.[facility] AUTHOR: GÓMEZ WITT PHYSICIAN: REFERRING PHYSICIAN: BRISA GONZALES MD DATE OF SERVICE: 10/29/19 Discharge Plan Patient Name: DREW GARCÍA [facility] [facility] 1940 Planned Disposition: Inpatient Rehab Anticipated Discharge Date: Discharge Date: Expected LOS: Initial Reviewer: [id number] Initial Review Date: 10/29/2019 Generated: 10/29/19 2:22 pm DCPIA - Discharge Planning Initial Assessment Updated by [email or web address]: Kenia Jeffries on 10/29/19 1:20 pm * Is the patient Alert and Oriented? Yes * How many steps to enter\exit or inside your home? 0/0 * PCP Dr. Lopez * [facility] * Preadmission Environment Assisted Living * Facility Name [facility] * ADLs Partial Dependent * Partial ADLs (Assistance needed) Ambulation Bathing Dressing Medication Management Transfers * Equipment Walker * List name and contact numbers for known caregivers / representatives who currently or will assist patient after discharge: Raven Beau - [phone] * Verbal permission to speak to the caregivers and representatives has been obtained from the patient. Yes * Community resources currently utilized None * Additional services required to return to the preadmission environment? Yes * Can the patient safely return to the preadmission environment? Yes * Has this patient been hospitalized within the prior 30 days at any hospital? No Patient Name: DREW GARCÍA Page 66840 at 1322 All edits/amendments must be made on the electronic document DICTATION DATE: 10/29/19 1322 CREDIT RATING INSPECTOR: TAMERA 10/29/19 1322 RPT#: [id number] DC DATE: STATUS: ADM IN [facility] [address] [place] [address] END OF REPORT
--- NOTE | 2019-10-29 13:31 | MORECARE ---
CASE MANAGEMENT DISCHARGE SUMMARY PATIENT: DREW GARCÍA UNIT: [id number] ADM DATE: 10/26/19 AGE: 79 : 41 SEX: F ROOM/BED: D.3588 AUTHOR: GÓMEZ WITT PHYSICIAN: REFERRING PHYSICIAN: BRISA GONZALES MD DATE OF SERVICE: 10/29/19 Discharge Plan Patient Name: DREW GARCÍA [facility]: [facility]:[place] : 1940 Planned Disposition: Inpatient Rehab Anticipated Discharge Date: Discharge Date: Expected LOS: Initial Reviewer: [email or web address] Initial Review Date: 10/29/2019 Generated: 10/29/19 2:31 pm Comments DCP- Discharge Planning Updated by [email or web address]: Kenia Jeffries on 10/29/19 12:[address] Patient Name: DREW GARCÍA Admission Status: ER Accout number: [id number] Admission Date: 10-26-2019 : 1940 Admission Diagnosis:ACUTE RESPIRATORY FAILURE WITH HYPOXIA Attending: CHRISTIAN, Current LOS: 3 Anticipated DC Date: Planned Disposition: Inpatient Rehab Primary Insurance: MEDICARE A & B Discharge Planning Comments: CM met with patient to discuss discharge planning, she is alone in the room. She states she lives at [facility]. States they assist her with bathing, dressing, transfers and medication management. She states she was ambulating without AD until recently when she has become much weaker. States she does have a walker with a seat. She states she would like to go to rehab prior to returning to her assisted living apartment. I discussed inpatient rehab vs SNF. She would like a referral to inpatient rehab here at [facility]. I spoke with patient's daughter on the phone and she agrees with this plan. She states that her mother has had a history of normal pressure hydrocephalus and has been at inpatient rehab and at [facility] for SN therapy. Patient's daughter states " I think she would do well in inpatient rehab and be able to return to her assisted living pretty quickly." States typically her mother is very ambulatory, but in the past few weeks has had several falls and has gotten to where she couldn't get out of bed. A rehab screen has already been ordered. I left a message with An in inpatient rehab of patient's preference. CM will continue to follow and assist with discharge planning/needs. Silverer: Kenia Jeffries DCPIA - Discharge Planning Initial Assessment Updated by [email or web address]: Kenia Jeffries on 10/29/19 1:20 pm * Is the patient Alert and Oriented? Yes * How many steps to enter\\exit or inside your home? 0/0 * PCP Dr. Lopez * Pharmacy [facility] * Preadmission Environment Assisted Living * Facility Name [facility] * ADLs Partial Dependent * Partial ADLs (Assistance needed) Ambulation Bathing Dressing Medication Management Transfers * Equipment Walker * List name and contact numbers for known caregivers / representatives who currently or will assist patient after discharge: Raven Yanez - [phone] * Verbal permission to speak to the caregivers and representatives has been obtained from the patient. Yes * Community resources currently utilized None * Additional services required to return to the preadmission environment? Yes * Can the patient safely return to the preadmission environment? Yes * Has this patient been hospitalized within the prior 30 days at any hospital? No Coverage Notice Reviewer: [id number] - Kenia Jeffries Notice Issued Date-Time: 10/29/2019 13:29 Notice Type: IM Discharge Notice Notice Delivered To: Patient Relationship to Patient: Self Human Resources Hr Generalist Name: Delivery Method: HAND - Hand Delivered [place] Days: Prior Verbal Notification: Recipient Understood Notice: Yes Recipient Signature: Yes Med Rec Note Co-signed by Attending: Coverage Notice Comment: JASBIR for [facility] inpatient rehab Last DP export: 10/29/19 12:22 p Patient Name: DREW GARCÍA Page [id number] at 1331 All edits/amendments must be made on the electronic document DICTATION DATE: 10/29/19 1331 WATER MECHANIC: TAMERA 10/29/19 1331 RPT#: [id number] MO DATE: STATUS: ADM IN [facility] [address] [place] [address] END OF REPORT
[2019-10-29 15:48] VITALS: BP 138/72
--- NOTE | 2019-10-29 16:11 | NUR ---
OT NOTE: PT COMPLETED BED MOB WITH MIN A. PT COMPLETD SIT TO STAND WITH MIN A. PT COMPLETED FACE HYGIENE WITH SETUP. [id number] THANK YOU,SAMEERA CHAVIRA
[2019-10-29 20:30] VITALS: BP 121/60
[2019-10-30 00:26] VITALS: BP 136/95
[2019-10-30 04:30] VITALS: BP 147/63
[2019-10-30 05:34] LABS: BASOPHILS 0.6 % (0-2); EOSINOPHILS 2.9 % (0-7); HEMATOCRIT 34.7 % (36.0-48.0); HEMOGLOBIN 10.5 g/dL (12-16); IMMATURE GRANULOCYTES 0.2 % (0-5); LYMPHOCYTES 21.9 % (15-50); MCH 27.3 pg (26.0-34.0); MCHC 30.3 g/dL (31.0-37.0); MCV 90.4 fL (80.0-100.0); MEAN PLATELET VOLUME 9.5 fL (7.4-10.4); MONOCYTES 11.6 % (2-11); NEUTROPHILS 62.8 % (40-80); PLATELET COUNT 230 10x3/uL (130-400); RBC 3.84 10x6/uL (4.00-5.40); RDW 15.1 % (11.5-14.5); WBC 6.3 10x3/uL (4.8-10.8)
[2019-10-30 06:09] LABS: ALBUMIN 2.5 g/dL (3.4-5.0); ALKALINE PHOSPHATASE 38 U/L (30-120); ALT (SGPT) 10 U/L (10-68); BILIRUBIN - TOTAL 0.26 mg/dL (0.2-1.3); CALC OSMOLALITY 277 mosm/kg (275-300); CALCIUM 7.8 mg/dL (8.5-10.1); CARBON DIOXIDE 29.5 mmol/L (21.0-32.0); CHLORIDE - SERUM 107 mmol/L (98-107); CREATININE - SERUM 0.6 mg/dL (0.6-1.3); GLUCOSE 93 mg/dL (74-106); MAGNESIUM - SERUM 2.1 mg/dL (1.8-2.4); POTASSIUM - SERUM 3.1 mmol/L (3.5-5.1); PROTEIN - SERUM 5.9 g/dL (6.4-8.2); SODIUM 141 mmol/L (136-145); eGFR NON AFRICAN AMERICAN > 90 mL/min (90-120)
[2019-10-30 06:11] LABS: UREA NITROGEN 5 mg/dL (7-18)
[2019-10-30 10:06] VITALS: BP 132/62
[2019-10-30 13:12] VITALS: BP 130/62
--- NOTE | 2019-10-30 16:43 | NUR ---
PT CONTINUE WITH LOOSE STOOLS, REPORTS THIS IS CHRONIC/INTERMITETN D/T IBS. ORDER RECEIVED FOR IMODIUM PRN.
[2019-10-30 20:30] VITALS: BP 154/101
--- NOTE | 2019-10-30 21:50 | NUR ---
INITIAL ROUNDS COMPLETED AT 194. PT RESTING IN BED. ALERT. IVF AT [facility] TO LFA. NONLABORED RESPIRATIONS WITH O2 @ 2L/NC. SR UP X 2 AND CALL LIGHT IN REACH. BEDTIME MEDS GIVEN. REQUESTED KLONOPIN GIVEN. PT PULLED UP AND REPOSITIONED. CLEAN/DRY. IV ZITHROMAX NOW UP AND INFUSING @ 2151. CPOC.
--- NOTE | 2019-10-30 23:37 | NUR ---
(Late Entry)Rehab Note- Acute Inpatient Rehab prescreen was ordered 10/27. Continue to follow at this time with acute medical work up,noted with HTN, will also follow for increased physical therapy for therapy participation. Thank you for this referral! An Rosales RN Clinical Liaison, [facility] Rehab
[2019-10-31 00:55] VITALS: BP 163/80
[2019-10-31 04:30] VITALS: BP 156/75
[2019-10-31 06:04] LABS: BASOPHILS 0.6 % (0-2); EOSINOPHILS 3.8 % (0-7); HEMATOCRIT 34.2 % (36.0-48.0); HEMOGLOBIN 10.3 g/dL (12-16); IMMATURE GRANULOCYTES 0.1 % (0-5); LYMPHOCYTES 18.9 % (15-50); MCH 27.4 pg (26.0-34.0); MCHC 30.1 g/dL (31.0-37.0); MEAN PLATELET VOLUME 9.4 fL (7.4-10.4); MONOCYTES 11.9 % (2-11); NEUTROPHILS 64.7 % (40-80); PLATELET COUNT 229 10x3/uL (130-400); RBC 3.76 10x6/uL (4.00-5.40); RDW 15.1 % (11.5-14.5); WBC 6.8 10x3/uL (4.8-10.8)
[2019-10-31 06:26] LABS: ALBUMIN 2.6 g/dL (3.4-5.0); ALKALINE PHOSPHATASE 36 U/L (30-120); ALT (SGPT) 11 U/L (10-68); BILIRUBIN - TOTAL 0.26 mg/dL (0.2-1.3); CALC OSMOLALITY 283 mosm/kg (275-300); CALCIUM 8.1 mg/dL (8.5-10.1); CARBON DIOXIDE 31.2 mmol/L (21.0-32.0); CHLORIDE - SERUM 107 mmol/L (98-107); CREATININE - SERUM 0.6 mg/dL (0.6-1.3); GLUCOSE 91 mg/dL (74-106); MAGNESIUM - SERUM 2.1 mg/dL (1.8-2.4); POTASSIUM - SERUM 3.4 mmol/L (3.5-5.1); PROTEIN - SERUM 6.3 g/dL (6.4-8.2); SODIUM 144 mmol/L (136-145); UREA NITROGEN 5 mg/dL (7-18); eGFR NON AFRICAN AMERICAN > 90 mL/min (90-120)
[2019-10-31 10:01] VITALS: BP 169/75
[2019-10-31 18:22] VITALS: BP 143/69
[2019-10-31 20:30] VITALS: BP 110/71
[2019-11-01 00:17] VITALS: BP 130/60
[2019-11-01 04:30] VITALS: BP 131/71
[2019-11-01 05:45] LABS: BASOPHILS 0.7 % (0-2); EOSINOPHILS 5.7 % (0-7); HEMATOCRIT 35.7 % (36.0-48.0); HEMOGLOBIN 10.8 g/dL (12-16); IMMATURE GRANULOCYTES 0.2 % (0-5); MCH 27.5 pg (26.0-34.0); MCHC 30.3 g/dL (31.0-37.0); MCV 90.8 fL (80.0-100.0); MEAN PLATELET VOLUME 9.8 fL (7.4-10.4); NEUTROPHILS 64.4 % (40-80); PLATELET COUNT 266 10x3/uL (130-400); RBC 3.93 10x6/uL (4.00-5.40); WBC 5.8 10x3/uL (4.8-10.8)
[2019-11-01 06:16] LABS: ALBUMIN 2.6 g/dL (3.4-5.0); ALKALINE PHOSPHATASE 30 U/L (30-120); ALT (SGPT) 12 U/L (10-68); CALC OSMOLALITY 275 mosm/kg (275-300); CARBON DIOXIDE 34.1 mmol/L (21.0-32.0); CHLORIDE - SERUM 104 mmol/L (98-107); CREATININE - SERUM 0.6 mg/dL (0.6-1.3); GLUCOSE 91 mg/dL (74-106); POTASSIUM - SERUM 3.4 mmol/L (3.5-5.1); PROTEIN - SERUM 6.4 g/dL (6.4-8.2); SODIUM 139 mmol/L (136-145); eGFR NON AFRICAN AMERICAN > 90 mL/min (90-120)
[2019-11-01 06:17] LABS: UREA NITROGEN 7 mg/dL (7-18)
--- NOTE | 2019-11-01 07:20 | NUR ---
RECIEVE REPORT. RESTING IN BED WITH EYES CLOSED. NO SIGNS OF DISTRESS. CONTINUE PLAN OF CARE AND SAFETY PRECAUTIONS.
[2019-11-01 09:00] VITALS: BP 130/66
[2019-11-01 11:00] VITALS: BP 152/71
--- NOTE | 2019-11-01 13:34 | MORECARE ---
CASE MANAGEMENT DISCHARGE SUMMARY PATIENT: DREW GARCÍA UNIT: [id number] ADM DATE: 10/26/19 AGE: 79 : 41 SEX: F ROOM/BED: D.2111 AUTHOR: GÓMEZ WITT PHYSICIAN: REFERRING PHYSICIAN: BRISA GONZALES MD DATE OF SERVICE: 11/01/19 Discharge Plan Patient Name: DREW GARCÍA Facility: [facility]:[place] : 1940 Planned Disposition: Inpatient Rehab Anticipated Discharge Date: Discharge Date: Expected LOS: Initial Reviewer: [email or web address] Initial Review Date: 10/29/2019 Generated: 11/01/19 2:33 pm Comments DCP- Discharge Planning Updated by [email or web address]: Courtney Reagan on 11/01/19 12:[address] CM met with patient regarding DC plans. Patient lives independently @[facility], in an apartment. PCP: Dr. Lopez. [facility]. Emergency contact: Raven Yanez [phone]. DCP- Discharge Planning Updated by [email or web address]: Kenia Jeffries on 10/29/19 12:[address] Patient Name: DREW GARCÍA Admission Status: ER Accout number: [id number] Admission Date: 10-26-2019 : 1940 Admission Diagnosis:ACUTE RESPIRATORY FAILURE WITH HYPOXIA Attending: CHRISTIAN, Current LOS: 3 Anticipated DC Date: Planned Disposition: Inpatient Rehab Primary Insurance: MEDICARE A & B Discharge Planning Comments: CM met with patient to discuss discharge planning, she is alone in the room. She states she lives at [facility]. States they assist her with bathing, dressing, transfers and medication management. She states she was ambulating without AD until recently when she has become much weaker. States she does have a walker with a seat. She states she would like to go to rehab prior to returning to her assisted living apartment. I discussed inpatient rehab vs SNF. She would like a referral to inpatient rehab here at [facility]. I spoke with patient's daughter on the phone and she agrees with this plan. She states that her mother has had a history of normal pressure hydrocephalus and has been at inpatient rehab and at [place] for SN therapy. Patient's daughter states " I think she would do well in inpatient rehab and be able to return to her assisted living pretty quickly." States typically her mother is very ambulatory, but in the past few weeks has had several falls and has gotten to where she couldn't get out of bed. A rehab screen has already been ordered. I left a message with An in inpatient rehab of patient's preference. CM will continue to follow and assist with discharge planning/needs. Double Corner Cutter: Kenia CURRIEA - Discharge Planning Initial Assessment Updated by [email or web address]: Kenia Jeffries on 10/29/19 1:20 pm * Is the patient Alert and Oriented? Yes * How many steps to enter\\exit or inside your home? 0/0 * PCP Dr. Lopez * Pharmacy [facility] * Preadmission Environment Assisted Living * Facility Name [facility] * ADLs Partial Dependent * Partial ADLs (Assistance needed) Ambulation Bathing Dressing Medication Management Transfers * Equipment Walker * List name and contact numbers for known caregivers / representatives who currently or will assist patient after discharge: Raven Yanez - [phone] * Verbal permission to speak to the caregivers and representatives has been obtained from the patient. Yes * Community resources currently utilized None * Additional services required to return to the preadmission environment? Yes * Can the patient safely return to the preadmission environment? Yes * Has this patient been hospitalized within the prior 30 days at any hospital? No Coverage Notice Reviewer: [id number] - Kenia Nesha Notice Issued Date-Time: 10/29/2019 13:29 Notice Type: IM Discharge Notice Notice Delivered To: Patient Relationship to Patient: Self Quality Assurance Supervisor Final Name: Delivery Method: HAND - Hand Delivered [place] Days: Prior Verbal Notification: Recipient Understood Notice: Yes Recipient Signature: Yes Med Rec Note Co-signed by Attending: Coverage Notice Comment: JASBIR for [facility] inpatient rehab Reviewer: [id number] - Courtney Reagan Notice Issued Date-Time: 11/01/2019 13:22 Notice Type: IM Discharge Notice Notice Delivered To: Patient Relationship to Patient: Self Quality Assurance Supervisor Final Name: Drew García Delivery Method: HAND - Hand Delivered [place] Days: Prior Verbal Notification: Recipient Understood Notice: Yes Recipient Signature: Yes Med Rec Note Co-signed by Attending: Coverage Notice Comment: DC IMM signed and given to patient. Original to chart. Last DP export: 10/29/19 12:31 p Patient Name: DREW GARCÍA Page [id number] at 1334 All edits/amendments must be made on the electronic document DICTATION DATE: 11/01/19 1333 TELEVISION TECHNICIAN: TAMERA 11/01/19 1333 RPT#: [id number] DC DATE: STATUS: ADM IN [facility] [address] [place] [address] END OF REPORT
--- NOTE | 2019-11-01 13:43 | NUR ---
Nutrition Follow-up: Pt reports appetite "not good". Ate ~50% of breakfast this AM. Declines nutrition supplements. Diet: Regular Last wt: 138.6# (10/28) Last recorded BM: 10/29 Labs noted: K+ 3.4, Ca 8.0, Alb 2.6 Meds noted: Imodium, Protonix, electrolyte protocol -Encourage PO intake and honor food preferences within diet restrictions. -Monitor wt; noted daily wts ordered. -RD following.
--- NOTE | 2019-11-01 13:48 | MORECARE ---
CASE MANAGEMENT DISCHARGE SUMMARY PATIENT: DREW GARCÍA UNIT: [id number] ADM DATE: 10/26/19 AGE: 79 : 41 SEX: F ROOM/BED: D.211 AUTHOR: GÓMEZ WITT PHYSICIAN: REFERRING PHYSICIAN: BRISA GONZALES MD DATE OF SERVICE: 11/01/19 Discharge Plan Patient Name: DREW GARCÍA Facility: [facility]:[place] : 1940 Planned Disposition: Inpatient Rehab Anticipated Discharge Date: Discharge Date: Expected LOS: Initial Reviewer: [email or web address] Initial Review Date: 10/29/2019 Generated: 11/01/19 2:48 pm DCP- Discharge Planning Updated by [email or web address]: Courtney Reagan on 11/01/19 12:[address] CM met with patient regarding DC plans. Patient lives independently @[facility], in an apartment. PCP: Dr. Lopez. Pharmacy: [facility]. Emergency contact: Raven Yanez [phone]. DME: walker, shower chair. A staff member at [facility] manages patient's medication box. Discussed HHS, SNF, Rehab. Patient has been refusing Physical Therapy, strongly encouraged to participate vs going into a SNF bed. Patient agrees to participate with PT this afternoon. Rehab is following. DCP- Discharge Planning Updated by [id number]: Kenia Jeffries on 10/29/19 12:[address] Patient Name: DREW GARCÍA Admission Status: ER Accout number: [id number] Admission Date: 10-26-2019 : 1940 Admission Diagnosis:ACUTE RESPIRATORY FAILURE WITH HYPOXIA Attending: CHRISTIAN, Current LOS: 3 Anticipated DC Date: Planned Disposition: Inpatient Rehab Primary Insurance: MEDICARE A & B Discharge Planning Comments: CM met with patient to discuss discharge planning, she is alone in the room. She states she lives at [facility]. States they assist her with bathing, dressing, transfers and medication management. She states she was ambulating without AD until recently when she has become much weaker. States she does have a walker with a seat. She states she would like to go to rehab prior to returning to her assisted living apartment. I discussed inpatient rehab vs SNF. She would like a referral to inpatient rehab here at [facility]. I spoke with patient's daughter on the phone and she agrees with this plan. She states that her mother has had a history of normal pressure hydrocephalus and has been at inpatient rehab and at [place] for SN therapy. Patient's daughter states " I think she would do well in inpatient rehab and be able to return to her assisted living pretty quickly." States typically her mother is very ambulatory, but in the past few weeks has had several falls and has gotten to where she couldn't get out of bed. A rehab screen has already been ordered. I left a message with An in inpatient rehab of patient's preference. CM will continue to follow and assist with discharge planning/needs. Plant Anatomist: Kenia Jeffries DCPIA - Discharge Planning Initial Assessment Updated by [email or web address]: Kenia Jeffries on 10/29/19 1:20 pm * Is the patient Alert and Oriented? Yes * How many steps to enter\\exit or inside your home? 0/0 * PCP Dr. Lpoez * Pharmacy [facility] * Preadmission Environment Assisted Living * Facility Name [facility] * ADLs Partial Dependent * Partial ADLs (Assistance needed) Ambulation Bathing Dressing Medication Management Transfers * Equipment Walker * List name and contact numbers for known caregivers / representatives who currently or will assist patient after discharge: Raven Yanez - [phone] * Verbal permission to speak to the caregivers and representatives has been obtained from the patient. Yes * Community resources currently utilized None * Additional services required to return to the preadmission environment? Yes * Can the patient safely return to the preadmission environment? Yes * Has this patient been hospitalized within the prior 30 days at any hospital? No Coverage Notice Reviewer: [email or web address] - Kenia Jeffries Notice Issued Date-Time: 10/29/2019 13:29 Notice Type: IM Discharge Notice Notice Delivered To: Patient Relationship to Patient: Self [employer] Sales Consultant Name: Delivery Method: HAND - Hand Delivered [place] Days: Prior Verbal Notification: Recipient Understood Notice: Yes Recipient Signature: Yes Med Rec Note Co-signed by Attending: Coverage Notice Comment: JASBIR for [facility] inpatient rehab Reviewer: [id number] Matthew Reagan Notice Issued Date-Time: 11/01/2019 13:22 Notice Type: IM Discharge Notice Notice Delivered To: Patient Relationship to Patient: Self [employer] Sales Consultant Name: Drew García Delivery Method: HAND - Hand Delivered [place] Days: Prior Verbal Notification: Recipient Understood Notice: Yes Recipient Signature: Yes Med Rec Note Co-signed by Attending: Coverage Notice Comment: DC IMM signed and given to patient. Original to chart. Last DP export: 11/01/19 12:34 p Patient Name: DREW GARCÍA Page [id number] at 1348 All edits/amendments must be made on the electronic document DICTATION DATE: 11/01/19 1348 TUBE KNITTER: TAMERA 11/01/19 1348 RPT#: [id number] DC DATE: STATUS: ADM IN [facility] [address] [place] [address] END OF REPORT
--- NOTE | 2019-11-01 14:03 | MORECARE ---
CASE MANAGEMENT DISCHARGE SUMMARY PATIENT: DREW GARCÍA UNIT: [id number] ADM DATE: 10/26/19 AGE: 79 : 41 SEX: F ROOM/BED: D.2110 AUTHOR: EDUAR,DOC PHYSICIAN: REFERRING PHYSICIAN: BRISA GONZALES MD DATE OF SERVICE: 11/01/19 Discharge Plan Patient Name: DREW GARCÍA Facility: [facility]:[place] : 1940 Planned Disposition: Inpatient Rehab Anticipated Discharge Date: Discharge Date: Expected LOS: Initial Reviewer: [email or web address] Initial Review Date: 10/29/2019 Generated: 11/01/19 3:02 pm Comments DCP- Discharge Planning Updated by [email or web address]: Courtney Reagan on 11/01/19 1:[address] DC PLAN CM met with patient regarding DC plans. Patient lives independently @[facility], in an apartment. PCP: Dr. Lopez. Pharmacy: [facility]. Emergency contact: Raven Yanez [phone]. DME: walker, shower chair. A staff member at [facility] manages patient's medication box. Discussed HHS, SNF, Rehab. Patient has been refusing Physical Therapy, strongly encouraged to participate vs going into a SNF bed. Patient agrees to participate with PT this afternoon. Rehab is following. DCP- Discharge Planning Updated by [id number]: Kenia Jeffries on 10/29/19 12:[address] Patient Name: DREW GARCÍA Admission Status: ER Accout number: [id number] Admission Date: 10-26-2019 : 1940 Admission Diagnosis:ACUTE RESPIRATORY FAILURE WITH HYPOXIA Attending: CHRISTIAN, Current LOS: 3 Anticipated DC Date: Planned Disposition: Inpatient Rehab Primary Insurance: MEDICARE A & B Discharge Planning Comments: CM met with patient to discuss discharge planning, she is alone in the room. She states she lives at [facility]. States they assist her with bathing, dressing, transfers and medication management. She states she was ambulating without AD until recently when she has become much weaker. States she does have a walker with a seat. She states she would like to go to rehab prior to returning to her assisted living apartment. I discussed inpatient rehab vs SNF. She would like a referral to inpatient rehab here at [facility]. I spoke with patient's daughter on the phone and she agrees with this plan. She states that her mother has had a history of normal pressure hydrocephalus and has been at inpatient rehab and at [place] for SN therapy. Patient's daughter states " I think she would do well in inpatient rehab and be able to return to her assisted living pretty quickly." States typically her mother is very ambulatory, but in the past few weeks has had several falls and has gotten to where she couldn't get out of bed. A rehab screen has already been ordered. I left a message with An in inpatient rehab of patient's preference. CM will continue to follow and assist with discharge planning/needs. Surgical Services Assistant: Kenia Jeffries DCPIA - Discharge Planning Initial Assessment Updated by [id number]: Kenia Jeffries on 10/29/19 1:20 pm * Is the patient Alert and Oriented? Yes * How many steps to enter\\exit or inside your home? 0/0 * PCP Dr. Lopez * Pharmacy [facility] * Preadmission Environment Assisted Living * Facility Name [facility] * ADLs Partial Dependent * Partial ADLs (Assistance needed) Ambulation Bathing Dressing Medication Management Transfers * Equipment Walker * List name and contact numbers for known caregivers / representatives who currently or will assist patient after discharge: Raven Yanez - [phone] * Verbal permission to speak to the caregivers and representatives has been obtained from the patient. Yes * Community resources currently utilized None * Additional services required to return to the preadmission environment? Yes * Can the patient safely return to the preadmission environment? Yes * Has this patient been hospitalized within the prior 30 days at any hospital? No Coverage Notice Reviewer: [id number] - Kenia Jeffries Notice Issued Date-Time: 10/29/2019 13:29 Notice Type: IM Discharge Notice Notice Delivered To: Patient Relationship to Patient: Self Stylist Apprentice Name: Delivery Method: HAND - Hand Delivered [place] Days: Prior Verbal Notification: Recipient Understood Notice: Yes Recipient Signature: Yes Med Rec Note Co-signed by Attending: Coverage Notice Comment: JASBIR for [facility] inpatient rehab Reviewer: [id number] Matthew Reagan Notice Issued Date-Time: 11/01/2019 13:22 Notice Type: IM Discharge Notice Notice Delivered To: Patient Relationship to Patient: Self Stylist Apprentice Name: Drew García Delivery Method: HAND - Hand Delivered [place] Days: Prior Verbal Notification: Recipient Understood Notice: Yes Recipient Signature: Yes Med Rec Note Co-signed by Attending: Coverage Notice Comment: DC IMM signed and given to patient. Original to chart. Last DP export: 11/01/19 12:48 p Patient Name: DREW GARCÍA Page [id number] at 1403 All edits/amendments must be made on the electronic document DICTATION DATE: 11/01/19 1403 INTERTYPE OPERATOR: TAMERA 11/01/19 1403 RPT#: [id number] DC DATE: STATUS: ADM IN [facility] [address] [place] [address] END OF REPORT
[2019-11-01 15:00] VITALS: BP 161/77
--- NOTE | 2019-11-01 15:23 | NUR ---
OT NOTE: ASSISTED PT WITH BED MOB WITH MIN ASSIST; PT REPORTED NOT FEELING WELL AND BEFORE ATTEMPTING TO TRANSFER, SHE HAD AN EPISODE OF DIARRHEA. ASSISTED PT WITH MOD ASSIST TO TOILET AND MAX ASSIST WITH TOILET HYGIENE; ATTEMPTED IN ROOM AMBULATION, HOWEVER, PT HAD ANOTHER EPISODE OF DIARRHEA. MAX ASSIST FOR PERINEAL CARE AND MIN ASSIST TO DOFF AND MK GOWN; MOD ASSIST WITH RETURN BACK TO BED. NASIMA WELCH, OTR/L [phone]
--- NOTE | 2019-11-01 15:56 | NUR ---
OT NOTE: PT REQUIRED MAX A WITH LB HYGIENE TASKS SECONDARY TO LOOSE BM. PT COMPLETED BED MOB WITH MOD/MAX A. PT COMPLETED SIDE ROLLING WITH MOD A. PT IS WEAK AND REQUIRED EXTENSIVE ASSIST. NURSING AWARE. [id number] CHICO VUONG COTA
--- NOTE | 2019-11-01 20:30 | NUR ---
REPORT RECIEVED AND ROUNDING COMPLETE. PATIENT LAYING IN BED IN LOW FOWLERS, NO S/SX OF DISTRESS AT THIS TIME. WEARING NASAL CANNULA WITH O2 AT 2L, LEFT WRIST PIV THAT IS SALINE LOCKED AT THIS TIME. PATIENT STATES SHE NEEDS NOTHING MORE THEN 10 DAYS OF SLEEP. PATIENT IS A RIGHT ARM RESERVE FROM PREVIOUS SURGERY. CALL LIGHT WITHN REACH AND BED IN LOWEST LOCKED POSITION.
[2019-11-01 21:21] VITALS: BP 148/83
[2019-11-02 01:04] VITALS: BP 148/68
[2019-11-02 04:00] VITALS: BP 167/77
[2019-11-02 05:07] LABS: EOSINOPHILS 6.2 % (0-7); HEMOGLOBIN 10.3 g/dL (12-16); LYMPHOCYTES 21.7 % (15-50); MCH 26.7 pg (26.0-34.0); MCHC 29.4 g/dL (31.0-37.0); MCV 90.7 fL (80.0-100.0); MEAN PLATELET VOLUME 9.8 fL (7.4-10.4); MONOCYTES 11.8 % (2-11); NEUTROPHILS 59.3 % (40-80); PLATELET COUNT 247 10x3/uL (130-400); RBC 3.86 10x6/uL (4.00-5.40); RDW 14.9 % (11.5-14.5)
[2019-11-02 06:06] LABS: ALBUMIN 2.4 g/dL (3.4-5.0); ALKALINE PHOSPHATASE 30 U/L (30-120); ALT (SGPT) 11 U/L (10-68); BILIRUBIN - TOTAL 0.22 mg/dL (0.2-1.3); CALC OSMOLALITY 279 mosm/kg (275-300); CALCIUM 7.9 mg/dL (8.5-10.1); CARBON DIOXIDE 30.4 mmol/L (21.0-32.0); CHLORIDE - SERUM 107 mmol/L (98-107); CREATININE - SERUM 0.5 mg/dL (0.6-1.3); GLUCOSE 83 mg/dL (74-106); POTASSIUM - SERUM 3.6 mmol/L (3.5-5.1); SODIUM 142 mmol/L (136-145); UREA NITROGEN 7 mg/dL (7-18); eGFR NON AFRICAN AMERICAN > 90 mL/min (90-120)
[2019-11-02 09:00] VITALS: BP 123/63
[2019-11-02 11:00] VITALS: BP 151/68
--- NOTE | 2019-11-02 14:47 | NUR ---
OT NOTE: PRACTICED BED MOB INCLUDING ROLLING AND SUPINE TO SIT..AFTER SEVERAL ATTEMPTS, PT WAS ABLE TO GET TO EOB WITH ONLY MIN ASSIST; GOOD SITTING BALANCE; ABLE TO WASH HANDS AND FACE WITH CLOTH; MIN ASSIST TO MK GOWN AND MOD ASSIST TO MK SOCKS; TRANSFER TO TOILET WITH WALKER AND MIN ASSIST X 2.. CONSTANT VERBAL CUES FOR WT SHIFT FORWARD TO PREVENT FALLING BACKWARDS; TOILET HYGIENE WITH MOD ASSIST; IN ROOM AMBULATION WITH WALKER AND MIN ASSIST.. PERFORMED MUCH BETTER TODAY. NASIMA WELCH, OTR/L [phone]
[2019-11-02 15:00] VITALS: BP 137/72
--- NOTE | 2019-11-02 16:18 | NUR ---
OT NOTE: PT COMPLETED SUPINE TO SIT WITH MIN A. PT COMPLETED SIT TO STAND WITH MIN A/CGA. PT COMPLETED ADL MOB WITH R/W REQUIRED CGA. PT COMPLETED UE AROM EXERICISES TOLERATED. PT EXHIBITED INCREASED INDEPENDENCE WITH FUNCTIONAL TASKS. PT REQUIRED FEWER REST BREAKS. [id number] THANK YOU,SAMEERA CHAVIRA
[2019-11-02 20:00] VITALS: BP 130/61
[2019-11-03] VITALS: BP 136/68
[2019-11-03 04:00] VITALS: BP 119/62
[2019-11-03 05:39] LABS: BASOPHILS 0.6 % (0-2); EOSINOPHILS 5.5 % (0-7); HEMATOCRIT 34.6 % (36.0-48.0); HEMOGLOBIN 10.3 g/dL (12-16); LYMPHOCYTES 21.2 % (15-50); MCHC 29.8 g/dL (31.0-37.0); MCV 90.8 fL (80.0-100.0); MEAN PLATELET VOLUME 9.6 fL (7.4-10.4); MONOCYTES 9.6 % (2-11); NEUTROPHILS 63.1 % (40-80); PLATELET COUNT 254 10x3/uL (130-400); RBC 3.81 10x6/uL (4.00-5.40); RDW 14.8 % (11.5-14.5); WBC 5.1 10x3/uL (4.8-10.8)
[2019-11-03 06:11] LABS: ALBUMIN 2.5 g/dL (3.4-5.0); ALKALINE PHOSPHATASE 31 U/L (30-120); ALT (SGPT) 11 U/L (10-68); BILIRUBIN - TOTAL 0.24 mg/dL (0.2-1.3); CALC OSMOLALITY 279 mosm/kg (275-300); CALCIUM 8.2 mg/dL (8.5-10.1); CARBON DIOXIDE 31.7 mmol/L (21.0-32.0); CHLORIDE - SERUM 106 mmol/L (98-107); CREATININE - SERUM 0.5 mg/dL (0.6-1.3); GLUCOSE 84 mg/dL (74-106); POTASSIUM - SERUM 3.7 mmol/L (3.5-5.1); PROTEIN - SERUM 5.7 g/dL (6.4-8.2); SODIUM 142 mmol/L (136-145); UREA NITROGEN 8 mg/dL (7-18); eGFR NON AFRICAN AMERICAN > 90 mL/min (90-120)
--- NOTE | 2019-11-03 07:45 | NUR ---
REPORT RECIEVED. PT SITTING SEMI FOWLERS IN BED. RR EVEN AND UNLABORED ON 2L NC. SHE HAS A L WRIST PIV THAT IS SL. BED LOCKED AND IN LOWEST POSITION, CALL LIGHT WITHIN REACH. WILL CTM
[2019-11-03 11:08] VITALS: BP 130/59
--- NOTE | 2019-11-03 12:37 | MORECARE ---
CASE MANAGEMENT DISCHARGE SUMMARY PATIENT: DREW GARCÍA UNIT: [id number] ADM DATE: 10/26/19 AGE: 79 : 41 SEX: F ROOM/BED: D[facility] [place] AUTHOR: GÓMEZ WITT PHYSICIAN: REFERRING PHYSICIAN: BRISA GONZALES MD DATE OF SERVICE: 11/03/19 Discharge Plan Patient Name: DREW GARCÍA Facility: [facility]:[place] : 1940 Planned Disposition: Inpatient Rehab Anticipated Discharge Date: Discharge Date: Expected LOS: Initial Reviewer: [email or web address] Initial Review Date: 10/29/2019 Generated: 11/03/19 1:37 pm Comments DCP- Discharge Planning Updated by [email or web address]: Courtney Reagan on 11/03/19 11:[address] Patient will be accepted to [facility] today. DCP- Discharge Planning Updated by [email or web address]: Courtney Reagan on 11/01/19 1:[address] DC PLAN CM met with patient regarding DC plans. Patient lives independently @[facility], in an apartment. PCP: Dr. Lopez. Pharmacy: [facility]. Emergency contact: Raven Yanez [phone]. DME: ant, shower chair. A staff member at [facility] manages patient's medication box. Discussed HHS, SNF, Rehab. Patient has been refusing Physical Therapy, strongly encouraged to participate vs going into a SNF bed. Patient agrees to participate with PT this afternoon. Rehab is following. DCP- Discharge Planning Updated by [id number]: Kenia Jeffries on 10/29/19 12:[address] Patient Name: DREW GARCÍA Admission Status: ER Accout number: [id number] Admission Date: 10-26-2019 : 1940 Admission Diagnosis:ACUTE RESPIRATORY FAILURE WITH HYPOXIA Attending: CHRISTIAN, Current LOS: 3 Anticipated DC Date: Planned Disposition: Inpatient Rehab Primary Insurance: MEDICARE A & B Discharge Planning Comments: CM met with patient to discuss discharge planning, she is alone in the room. She states she lives at [facility]. States they assist her with bathing, dressing, transfers and medication management. She states she was ambulating without AD until recently when she has become much weaker. States she does have a walker with a seat. She states she would like to go to rehab prior to returning to her assisted living apartment. I discussed inpatient rehab vs SNF. She would like a referral to inpatient rehab here at [facility]. I spoke with patient's daughter on the phone and she agrees with this plan. She states that her mother has had a history of normal pressure hydrocephalus and has been at inpatient rehab and at [place] for SN therapy. Patient's daughter states " I think she would do well in inpatient rehab and be able to return to her assisted living pretty quickly." States typically her mother is very ambulatory, but in the past few weeks has had several falls and has gotten to where she couldn't get out of bed. A rehab screen has already been ordered. I left a message with An in inpatient rehab of patient's preference. CM will continue to follow and assist with discharge planning/needs. Inorganic Chemist: Kenia Jeffries DCPIA - Discharge Planning Initial Assessment Updated by [id number]: Kenia Jeffries on 10/29/19 1:20 pm * Is the patient Alert and Oriented? Yes * How many steps to enter\\exit or inside your home? 0/0 * PCP Dr. Lopez * Pharmacy [facility] * Preadmission Environment Assisted Living * [facility] * ADLs Partial Dependent * Partial ADLs (Assistance needed) Ambulation Bathing Dressing Medication Management Transfers * Equipment Walker * List name and contact numbers for known caregivers / representatives who currently or will assist patient after discharge: Raven Yanez - [phone] * Verbal permission to speak to the caregivers and representatives has been obtained from the patient. Yes * Community resources currently utilized None * Additional services required to return to the preadmission environment? Yes * Can the patient safely return to the preadmission environment? Yes * Has this patient been hospitalized within the prior 30 days at any hospital? No Coverage Notice Reviewer: [id number] - Kenia Jeffries Notice Issued Date-Time: 10/29/2019 13:29 Notice Type: IM Discharge Notice Notice Delivered To: Patient Relationship to Patient: Self Construction Coordinator Name: Delivery Method: HAND - Hand Delivered [place] Days: Prior Verbal Notification: Recipient Understood Notice: Yes Recipient Signature: Yes Med Rec Note Co-signed by Attending: Coverage Notice Comment: JASBIR for [facility] inpatient rehab Reviewer: [id number] Matthew Reagan Notice Issued Date-Time: 11/01/2019 13:22 Notice Type: IM Discharge Notice Notice Delivered To: Patient Relationship to Patient: Self Construction Coordinator Name: Drew García Delivery Method: HAND - Hand Delivered [place] Days: Prior Verbal Notification: Recipient Understood Notice: Yes Recipient Signature: Yes Med Rec Note Co-signed by Attending: Coverage Notice Comment: DC IMM signed and given to patient. Original to chart. Reviewer: [id number] Matthew Reagan Notice Issued Date-Time: 11/01/2019 15:18 Notice Type: Patient Choice Letter Notice Delivered To: Patient Relationship to Patient: Self Construction Coordinator Name: Drew García. Delivery Method: HAND - Hand Delivered [place] Days: Prior Verbal Notification: Recipient Understood Notice: Yes Recipient Signature: Yes Med Rec Note Co-signed by Attending: Coverage Notice Comment: Patient choice for [facility] signed and to chart. Last DP export: 11/03/19 9:42 am Patient Name: DREW GARCÍA Page [id number] at 1237 All edits/amendments must be made on the electronic document DICTATION DATE: 11/03/19 1237 AIRCRAFT ELECTRONICS TECHNICAL OFFICER: TAMERA 11/03/19 1237 RPT#: [id number] DC DATE: STATUS: ADM IN [facility] [address] [place] [address] END OF REPORT
[2019-11-03 13:09] VITALS: BP 136/65
--- NOTE | 2019-11-03 14:41 | NUR ---
OT NOTE: PT COMPLETED BED MOB SUPINE TO SIT WITH CGA/MIN A. PT COMPLETED SIT TO STAND WITH CGA. PT COMPLETED EOB FACE AND HAND HYGIENE TASKS WITH SETUP. [phone] THANK YOU,SAMEERA CHAVIRA
--- NOTE | 2019-11-03 15:15 | NUR ---
OT NOTE: PT DOING BETTER TODAY; BED MOB WITHOUT ASSIST INCLUDING SCOOTING OUT TO EOB. REQUIRED MOD ASSIST TO MK BRIEF; MIN/MOD ASSIST WITH TOILETING; SIMPLE GROOMING WITH SET UP; AMB WITH WALKER AND MIN ASSIST WITHOUT USE OF 02..INITIALLY SATS WERE AROUND 91%, HOWEVER, AFTER APPROX 50 FT, SATS DROPPED INTO LOW 80S..PT HAD NO DIZZINESS, SOB, ETC.. RE APPLIED 02 AND RECOVERED TO 92% IN APPROX 1 MIN. PRACTICED GETTING IN AND OUT OF BED WITH VERBAL CUES AND NO PHYSICAL ASSIST. NASIMA WELCH, OTR/L [phone]
--- NOTE | 2019-11-03 15:51 | NUR ---
I have reviewed this patient and I concur with the Shift Assessment completed by the Licensed Practical Nurse today this shift.
[2019-11-03 20:00] VITALS: BP 159/72
--- NOTE | 2019-11-05 14:00 | MORECARE ---
CASE MANAGEMENT DISCHARGE SUMMARY PATIENT: DREW GARCÍA UNIT: [id number] ADM DATE: 10/26/19 AGE: 79 : 41 SEX: F ROOM/BED: D.[facility] AUTHOR: GÓMEZ WITT PHYSICIAN: REFERRING PHYSICIAN: BRISA GONZALES MD DATE OF SERVICE: 11/05/19 Discharge Plan Patient Name: DREW GARCÍA Facility: [facility]:[place] : 1940 Planned Disposition: Inpatient Rehab Anticipated Discharge Date: 11/04/19 Discharge Date: 11/03/2019 Expected LOS: 9 Initial Reviewer: [email or web address] Initial Review Date: 10/29/2019 Generated: 11/05/19 2:59 pm Comments DCP- Discharge Planning Updated by [email or web address]: Courtney Reagan on 11/03/19 11:[address] Patient will be accepted to [facility] today. DCP- Discharge Planning Updated by [id number]: Courtney Reagan on 11/01/19 1:[address] DC PLAN CM met with patient regarding DC plans. Patient lives independently @[facility], in an apartment. PCP: Dr. Lopez. [facility]acy[facility]. Emergency contact: Raven Yanez [phone]. DME: ant shower chair. A staff member at [facility] manages patient's medication box. Discussed HHS, SNF, Rehab. Patient has been refusing Physical Therapy, strongly encouraged to participate vs going into a SNF bed. Patient agrees to participate with PT this afternoon. Rehab is following. DCP- Discharge Planning Updated by [id number]: Kenia Jeffries on 10/29/19 12:[address] Patient Name: DREW GARCÍA Admission Status: ER Accout number: [id number] Admission Date: 10-26-2019 : 1940 Admission Diagnosis:ACUTE RESPIRATORY FAILURE WITH HYPOXIA Attending: CHRISTIAN, Current LOS: 3 Anticipated DC Date: Planned Disposition: Inpatient Rehab Primary Insurance: MEDICARE A & B Discharge Planning Comments: CM met with patient to discuss discharge planning, she is alone in the room. She states she lives at [facility]. States they assist her with bathing, dressing, transfers and medication management. She states she was ambulating without AD until recently when she has become much weaker. States she does have a walker with a seat. She states she would like to go to rehab prior to returning to her assisted living apartment. I discussed inpatient rehab vs SNF. She would like a referral to inpatient rehab here at [facility]. I spoke with patient's daughter on the phone and she agrees with this plan. She states that her mother has had a history of normal pressure hydrocephalus and has been at inpatient rehab and at [place] for SN therapy. Patient's daughter states " I think she would do well in inpatient rehab and be able to return to her assisted living pretty quickly." States typically her mother is very ambulatory, but in the past few weeks has had several falls and has gotten to where she couldn't get out of bed. A rehab screen has already been ordered. I left a message with An in inpatient rehab of patient's preference. CM will continue to follow and assist with discharge planning/needs. Sociology Instructor: Kenai Jeffries DCPIA - Discharge Planning Initial Assessment Updated by [email or web address]: Kenia Jeffries on 10/29/19 1:20 pm * Is the patient Alert and Oriented? Yes * How many steps to enter\\exit or inside your home? 0/0 * PCP Dr. Lopez * Pharmacy [facility] * Preadmission Environment Assisted Living * Facility Name [facility] * ADLs Partial Dependent * Partial ADLs (Assistance needed) Ambulation Bathing Dressing Medication Management Transfers * Equipment Walker * List name and contact numbers for known caregivers / representatives who currently or will assist patient after discharge: Raven Yanez - [phone] * Verbal permission to speak to the caregivers and representatives has been obtained from the patient. Yes * Community resources currently utilized None * Additional services required to return to the preadmission environment? Yes * Can the patient safely return to the preadmission environment? Yes * Has this patient been hospitalized within the prior 30 days at any hospital? No Coverage Notice Reviewer: [id number] - Kenia Jeffries Notice Issued Date-Time: 10/29/2019 13:29 Notice Type: IM Discharge Notice Notice Delivered To: Patient Relationship to Patient: Self Lot Technician Name: Delivery Method: HAND - Hand Delivered [place] Days: Prior Verbal Notification: Recipient Understood Notice: Yes Recipient Signature: Yes Med Rec Note Co-signed by Attending: Coverage Notice Comment: JASBIR for [facility] inpatient rehab Reviewer: [id number] Matthew Reagan Notice Issued Date-Time: 11/01/2019 13:22 Notice Type: IM Discharge Notice Notice Delivered To: Patient Relationship to Patient: Self Lot Technician Name: Drew García Delivery Method: HAND - Hand Delivered [place] Days: Prior Verbal Notification: Recipient Understood Notice: Yes Recipient Signature: Yes Med Rec Note Co-signed by Attending: Coverage Notice Comment: DC IMM signed and given to patient. Original to chart. Reviewer: [email or web address] Matthew Reagan Notice Issued Date-Time: 11/01/2019 15:18 Notice Type: Patient Choice Letter Notice Delivered To: Patient Relationship to Patient: Self Lot Technician Name: Drew García. Delivery Method: HAND - Hand Delivered [place] Days: Prior Verbal Notification: Recipient Understood Notice: Yes Recipient Signature: Yes Med Rec Note Co-signed by Attending: Coverage Notice Comment: Patient choice for [facility] signed and to chart. Last DP export: 11/03/19 11:37 am Patient Name: DREW GARCÍA Page [id number] at 1400 All edits/amendments must be made on the electronic document DICTATION DATE: 11/05/19 1359 MEDICARE INSURANCE SPECIALIST: TAMERA 11/05/19 1359 RPT#: [id number] DC DATE:11/03/19 STATUS: DIS IN [facility] [address] [place] [address] END OF REPORT
== END 2019-11-03 21:30 | DRG 194 ==
LOC: D.ER 16:07 → D.M2 19:56 → D.SDCHOLD 11-01 14:56 → D.M2 11-03 21:30
PROVIDERS: Family Medicine; ADMIT Family Medicine; ATTEND Family Medicine
DX: J18.9 Pneumonia, unspecified organism (principal); N39.0 Urinary tract infection, site not specified; R53.1 Weakness; D64.9 Anemia, unspecified; E78.5 Hyperlipidemia, unspecified; K21.9 Gastro-esophageal reflux disease without esophagitis; J44.9 Chronic obstructive pulmonary disease, unspecified; F41.8 Other specified anxiety disorders; F03.90 Unspecified dementia, unspecified severity, without behavioral disturbance, psychotic disturbance, mood disturbance, and anxiety; I48.91 Unspecified atrial fibrillation; M54.9 Dorsalgia, unspecified; B00.1 Herpesviral vesicular dermatitis

== ENCOUNTER 2019-11-03 22:30 | Inpatient (IN) | payer MEDICARE ==
[~2019-11-03] VITALS: Ht 162.6 cm; Wt 63.0 kg
[~2019-11-03 22:30] MED LIST changes: +ALENDRONAT70 MG/75 M PO; +AZELASTINE137 MCG/0. NASAL; +BACLOFEN10 MG PO; +CLARITIN 10 MG10 MG PO; +HYDROCODON-ACE1 EA10 PO; +MECLIZINE HCL25 MG PO; +METHOCARBAMOL500 MG PO; +MUCINEX600 MG PO; +SYMBICORT 80-10.2 GM INH; +ULTRAM50 MG PO; +VITAMIN D2
[2019-11-03 23:01] VITALS: BP 148/69; BMI 23.9
--- NOTE | 2019-11-03 23:01 | NUR ---
ADMIT THIS PATIENT TO ROOM 1118A FOR SHORTNESS OF BREATH/PNEUMONIA, PHYSICAL REHAB AND SERVICES OF DR DE PAZ. AWAKE AND ALERT. RESPIRATIONS UNLABORED WITH O2/2L PER NASAL CANNULA. ORIENTED TO ROOM AND CALL LIGHT USE. SEE ADMISSION ASSESMENT. CALL LIGHT IN REACH.
--- NOTE | 2019-11-04 01:05 | NUR ---
CONTINUES TO HAVE BACK PAIN. SITTING ON SIDE OF BED FOR RELIEF.
--- NOTE | 2019-11-04 02:00 | NUR ---
CALLED OUT FOR ASSISTANCE. HAD LEGS OVER EDGE OF BED. STATED SHE NEEDED HELP TO BATHROOM. REMINDED TO USE CALL LIGHT TO CALL FOR ASSISTACE BEFORE GETTING UP. REVIEWED HOW TO USE CALL LIGHT TO CALL FOR NURSE. VOICES UNDERSTANDING. ASSISTED TO BATHROOM AND SHE HAD A BM. ASSISTED BACK TO BED. SAFETY MEASURES IN PLACE.
--- NOTE | 2019-11-04 04:18 | NUR ---
RESTING QUIETLY RESPIRAITONS UNLABORED. O2/2L ON PER NASAL CANNULA.
--- NOTE | 2019-11-04 05:57 | NUR ---
QUIET HOURS. NO ACUTE CHANGES IN CONDITION. RESTING QUIETLY.
[2019-11-04 07:05] LABS: BASOPHILS 1.1 % (0-2); EOSINOPHILS 5.5 % (0-7); HEMATOCRIT 34.7 % (36.0-48.0); HEMOGLOBIN 10.5 g/dL (12-16); IMMATURE GRANULOCYTES 0.2 % (0-5); LYMPHOCYTES 25.7 % (15-50); MCH 27.3 pg (26.0-34.0); MCHC 30.3 g/dL (31.0-37.0); MCV 90.4 fL (80.0-100.0); MEAN PLATELET VOLUME 9.5 fL (7.4-10.4); MONOCYTES 10.9 % (2-11); NEUTROPHILS 56.6 % (40-80); PLATELET COUNT 258 10x3/uL (130-400); RBC 3.84 10x6/uL (4.00-5.40); RDW 14.6 % (11.5-14.5); WBC 4.8 10x3/uL (4.8-10.8)
[2019-11-04 07:32] LABS: CALC OSMOLALITY 281 mosm/kg (275-300); CALCIUM 8.6 mg/dL (8.5-10.1); CARBON DIOXIDE 34.7 mmol/L (21.0-32.0); CHLORIDE - SERUM 103 mmol/L (98-107); CREATININE - SERUM 0.6 mg/dL (0.6-1.3); GLUCOSE 87 mg/dL (74-106); POTASSIUM - SERUM 3.2 mmol/L (3.5-5.1); SODIUM 143 mmol/L (136-145); UREA NITROGEN 7 mg/dL (7-18); eGFR NON AFRICAN AMERICAN > 90 mL/min (90-120)
[2019-11-04 08:00] VITALS: BP 165/84
--- NOTE | 2019-11-04 08:00 | NUR ---
PT RESTING IN BED WITH EYES OPEN CALL LIGHT IN REACH WILL MONITER
--- NOTE | 2019-11-04 12:00 | NUR ---
I have reviewed this patient and I concur with the Shift Assessment completed by the Licensed Practical Nurse today this shift.
--- NOTE | 2019-11-04 12:07 | NUR ---
PATIENT ADMITTED TO REHAB FROM ACUTE FLOOR. HER PCP IS DR. DE PAZ. DME AT HOME IS A WALKER AND SHOWER CHAIR. DISCHARGE PLANS ARE FOR HER TO RETURN TO HER APARTMENT AT [facility]. WILL CONTINUE TO FOLLOW WITH PATIENT.
[2019-11-04 13:41] VITALS: Ht 162.6 cm; Wt 63.0 kg
--- NOTE | 2019-11-04 17:20 | NUR ---
PT RESTING IN BED WITH EYES OPEN CALL LIGHT IN REACH WILL MONITER
--- NOTE | 2019-11-04 20:10 | NUR ---
AWAKE AND ALERT RESTING IN BED. NO DISTRESS NOTED. STATES SHE SLEPT A LOT TODAY. CALL LIGHT IN REACH.
[2019-11-04 21:45] VITALS: BP 154/73
--- NOTE | 2019-11-05 01:00 | NUR ---
ASSISTED TO BATHROOM AND BACK TO BED. NO DISTRESS NOTED.
--- NOTE | 2019-11-05 06:23 | NUR ---
QUIET HOURS. NO ACUTE CHANGES IN CONDITION THIS SHIFT. RESTING IN BED WITH NO DISTRESS NOTED.
[2019-11-05 08:00] VITALS: BP 134/56
--- NOTE | 2019-11-05 18:45 | NUR ---
PATIENT IN BED WITH NO COMPLAINTS AT THIS TIME. ATE 25% OF DINNER. HEELS FLOATING ON PILLOW. CALL LIGHT WITHIN REACH.
[2019-11-05 20:19] VITALS: BP 136/57
--- NOTE | 2019-11-05 20:32 | NUR ---
AWAKE AND ALERT. RESTING IN BED WITH NO DISTRESS NOTED. O2/2L ON PER NASAL CANNULA. CALL LIGHT IN REACH.
--- NOTE | 2019-11-06 05:26 | NUR ---
QUIET HOURS. SLEPT IN LONG INTERVALS THIS SHIFT. UP A FEW TIMES TO VOID. RESTING NOW WITH NO DISTRESS NOTED.
[2019-11-06 08:00] VITALS: BP 122/65
--- NOTE | 2019-11-06 15:29 | NUR ---
MIN TO MOD ASST WITH TRANSFER TO FROM BED. HX IBS WITH DIARRHEA. HAS HAD LOOSE STOOLS TODAY. LOMOTAL GIVEN ORDERED. MOVEMENTS ARE SLOW BUT SHE IS ABLE TO STAND AND TRANSFER.
--- NOTE | 2019-11-06 19:00 | NUR ---
PT AWAKE ALERT CONCERSING WITH HER NEIGHBOR. ASSISTED TO RESTROOM. PROVIDED ENCOURAGEMENT. PT STATED I CAN'T DO THIS. PT AMBULATED WITH MAX ASSISTANCE. UNABLE TO PROVIDE MEDARDO CARE. HEAD TO TOE ASSESSMENT COMPLETED. BED LOW, SIDE RAILS UP X2, CALL LIGHT IN REACH. NC 2 LITERS. WILL CONTINUE TO MONITOR.
[2019-11-06 20:38] VITALS: BP 167/75
--- NOTE | 2019-11-06 21:00 | NUR ---
PROVIDED NIGHT TIME MEDS. ASSISTED PT UP TO TOLET. CONTINUED PROVIDEING ENCOURAGEMENT. PT REQUIRED MAX ASSIST BUT LESS THAN EARLIER. PT WEAK AND UNSTEADY ON FEET.
--- NOTE | 2019-11-06 23:00 | NUR ---
ASSISTED PT IN WHEELCHAIR AND ROLLED HER TO BATHROOM FOR BM. BM SMALL SOFT AND BROWN. PROVIDED MEDARDO CARE. PROVIDED ENCOURAGEMENT NOT TO STOP TRYING. PT STATED SHE WAS DOING EVERYTHING BY HERSELF PRIOR TO THE HOSPITAL. STATES SHE IS AFRAID OF GOING TO THE [facility]. ASSISTED PT BACK INTO BED. BED LOW CALL LIGHT IN REACH. WILL CONTINUE TO MONITOR.
--- NOTE | 2019-11-07 03:00 | NUR ---
ASSISTED PT TO RESTROOM WITH MAX ASSISTANCE. ASSISTED BACK TO BED. DENIES ANY OTHER NEEDS AT THIS TIME.
--- NOTE | 2019-11-07 05:00 | NUR ---
ASSISTED PT TO RESTROOM WITH MINIMAL ASSISTANCE. PROVIDED FRESH WATER. DENIES ANY OTHER NEEDS AT THIS TIME. BED LOW CALL LIGHT IN REACH.
[2019-11-07 08:00] VITALS: BP 167/73
--- NOTE | 2019-11-07 09:00 | NUR ---
C/O NAUSEA THIS AM. REFUSED MEDS.
--- NOTE | 2019-11-07 13:38 | NUR ---
LAYING IN BED RESTING. DTR VISITING. PT HAD SHOWER TODAY AND DONE MUCH FOR HERSELF POSSIBLE. SHE STILL HAS DIARRHEA BUT HER NAUSEA FROM THIS MORNING RESOLVED AND SHE ATE SOME LUNCH. CALL LIGHT IN REACH, BED IN LOWEST POSITION, SIDE RAILS UP X2.
--- NOTE | 2019-11-07 19:52 | NUR ---
PT WATCHING TV, NO NEEDS NOTED, FALL PRECAUTIONS IN PLACE, FLUIDS/CALL LIGHT WITHIN REACH
--- NOTE | 2019-11-08 02:37 | NUR ---
PT ASLEEP AROUSES EASILY TO VOICE, NO NEEDS NOTED, FALL PRECAUTIONS IN PLACE, ALLOWED FLUIDS/CALL LIGHT WITHIN REACH
[2019-11-08 06:18] VITALS: BP 158/78; BP 162/68
[2019-11-08 07:34] LABS: BASOPHILS 0.5 % (0-2); EOSINOPHILS 2.4 % (0-7); HEMATOCRIT 35.8 % (36.0-48.0); LYMPHOCYTES 22.9 % (15-50); MCH 27.6 pg (26.0-34.0); MCHC 30.7 g/dL (31.0-37.0); MCV 89.9 fL (80.0-100.0); MEAN PLATELET VOLUME 9.5 fL (7.4-10.4); MONOCYTES 10.3 % (2-11); NEUTROPHILS 63.9 % (40-80); RBC 3.98 10x6/uL (4.00-5.40); RDW 14.4 % (11.5-14.5); WBC 5.7 10x3/uL (4.8-10.8)
[2019-11-08 07:35] LABS: PLATELET COUNT 318 10x3/uL (130-400)
[2019-11-08 07:53] LABS: CALC OSMOLALITY 278 mosm/kg (275-300); CALCIUM 8.5 mg/dL (8.5-10.1); CHLORIDE - SERUM 101 mmol/L (98-107); CREATININE - SERUM 0.7 mg/dL (0.6-1.3); GLUCOSE 90 mg/dL (74-106); POTASSIUM - SERUM 3.4 mmol/L (3.5-5.1); SODIUM 141 mmol/L (136-145); UREA NITROGEN 6 mg/dL (7-18); eGFR NON AFRICAN AMERICAN 86 mL/min (90-120)
[2019-11-08 08:00] VITALS: BP 111/65
--- NOTE | 2019-11-08 13:49 | NUR ---
IN THERAPY. APPETITE IS POOR. MOVEMENTS ARE VERY SLOW. IS OCCAS. INCONT OF STOOL.
--- NOTE | 2019-11-08 14:16 | NUR ---
Nutrition Follow-up: Per MD notes patient with lots of diarrhea. Per nursing notes patient with poor appetite and is incont of stool. Diet: Regular PO intake: ~15% average x last 9 meals recorded. Patient was in bathroom both times I attempted to visit her room. Per previous nutrition notes, patient has previously declined nutrition supplements. WT: 139# (11/04/19). Meds noted: k-dur. Labs noted: K 3.4(L), BUN 6(L) Recommend continue current diet. Will add Ensure clear on meal trays for her to try and follow up in a few days to see if she likes them. RD following.
--- NOTE | 2019-11-08 15:34 | NUR ---
recieved call from patients disease case manager from [facility] ext. [phone] if any assittance needed for discharge. will continue to follow with patient.
--- NOTE | 2019-11-08 20:00 | NUR ---
PT IS RESTING IN HER WC IN HER ROOM WATCHING TV. ALERT AND ORIENTED X 3. DENIES ACUTE PAIN OR DISCOMFORT AT THIS TIME. PT ASSISTED TO THE BATHROOM WITH MOD ASSIST. VOIDED WITHOUT DIFFICULTY. PT ASSISTED INTO BED AFTERWARDS PER HER REQUEST. O2 IS ON @ 2LPM PER NC. NO SOB NOTED. HEELS ARE ELEVATED UP ON A PILLOW. SR'S ARE UP X 2 IN BED. CALL LIGHT AND BEDSIDE TABLE ARE WITHIN EASY REACH.
[2019-11-08 21:40] VITALS: BP 141/70
--- NOTE | 2019-11-08 23:00 | NUR ---
RESTING QUIETLY IN BED WITH EYES CLOSED. NO DISTRESS NOTED.
--- NOTE | 2019-11-09 02:44 | NUR ---
I have reviewed this patient and I concur with the Shift Assessment completed by the Licensed Practical Nurse today this shift.
--- NOTE | 2019-11-09 05:59 | NUR ---
PT RESTING IN BED WITH EYES CLOSED. AWOKE EASILY TO VERBAL STIMULI. TOLERATED AM MED WITHOUT DIFFICULTY.
[2019-11-09 08:00] VITALS: BP 148/86
--- NOTE | 2019-11-09 08:00 | NUR ---
SHIFT ASSMT COMPLETED.CL IN REACH.
--- NOTE | 2019-11-09 12:00 | NUR ---
SITTING UP EATING LUNCH.
[2019-11-09 22:02] VITALS: BP 145/80
--- NOTE | 2019-11-10 02:53 | NUR ---
PT ASLEEP AROUSES EASILY TO VOICE, NO IMMEDIATE NEEDS NOTED,FALL PRECAUTIONS IN PLACE, FLUIDS/CALL LIGHT WITHIN REACH
[2019-11-10 06:27] LABS: BASOPHILS 0.8 % (0-2); EOSINOPHILS 3.8 % (0-7); HEMATOCRIT 36.2 % (36.0-48.0); IMMATURE GRANULOCYTES 0.2 % (0-5); LYMPHOCYTES 25.2 % (15-50); MCH 27.2 pg (26.0-34.0); MCHC 30.4 g/dL (31.0-37.0); MCV 89.4 fL (80.0-100.0); MEAN PLATELET VOLUME 9.4 fL (7.4-10.4); MONOCYTES 10.7 % (2-11); NEUTROPHILS 59.3 % (40-80); PLATELET COUNT 322 10x3/uL (130-400); RBC 4.05 10x6/uL (4.00-5.40); RDW 14.4 % (11.5-14.5); WBC 5.2 10x3/uL (4.8-10.8)
[2019-11-10 06:30] LABS: CALC OSMOLALITY 282 mosm/kg (275-300); CALCIUM 8.7 mg/dL (8.5-10.1); CARBON DIOXIDE 33.1 mmol/L (21.0-32.0); CHLORIDE - SERUM 105 mmol/L (98-107); CREATININE - SERUM 0.6 mg/dL (0.6-1.3); GLUCOSE 97 mg/dL (74-106); POTASSIUM - SERUM 3.7 mmol/L (3.5-5.1); SODIUM 143 mmol/L (136-145); eGFR NON AFRICAN AMERICAN > 90 mL/min (90-120)
[2019-11-10 06:35] LABS: UREA NITROGEN 8 mg/dL (7-18)
[2019-11-10 08:00] VITALS: BP 151/72
--- NOTE | 2019-11-10 08:00 | NUR ---
SHIFT ASSMT COMPLETED.BREAKFAST GIVEN.CL IN REACH.HEELS FLOATED ON PILLOW.
--- NOTE | 2019-11-10 12:00 | NUR ---
SITTING UP FOR LUNCH.CL IN REACH.
--- NOTE | 2019-11-10 15:01 | NUR ---
CARE TEAM MEETING: PATIENT IS DOING WELL IN THERAPY. HER TENATIVE DISCHARGE DATE IS 11/19/19. WILL CONTINUE TO FOLLOW WITH PATIENT.
--- NOTE | 2019-11-10 16:00 | NUR ---
IN BED RESTING,RADHA THERAPY TODAY.WILL CONTINUE POC.
--- NOTE | 2019-11-10 19:20 | NUR ---
RECEIVED PT LYING IN BED WATCHING TV. ALERT AND ORIENTED X4. DENIES ANY NEEDS OR PAIN. NO SIGNS OF ACUTE DISTRESS NOTED. HEELS BRIDGED. CALL LIGHT WITHIN REACH. FALL PRECAUTIONS IN PLACE. CPOC
[2019-11-10 21:59] VITALS: BP 173/92
--- NOTE | 2019-11-11 00:53 | NUR ---
PT LYING IN BED ON LEFT SIDE EYES CLOSED RESTING QUIETLY. RR EVEN AND UNLABORED. CONTINUES ON 2L VIA NC. CALL LIGHT WITHIN REACH. FALL PRECAUTIONS IN PLACE. CPOC
--- NOTE | 2019-11-11 02:50 | NUR ---
PT LYING IN BED SUPINE EYES CLOSED RESTING QUIETLY. HOB ELEVATED. RR EVEN AND UNLABORED. CALL LIGHT WITHIN REACH. FALL PRECAUTIONS IN PLACE. CPOC
[2019-11-11 07:38] VITALS: BP 153/80
--- NOTE | 2019-11-11 19:47 | NUR ---
AWAKE AND ALERT. RESTING IN BED WITH RESPIRAITONS UNLABORED. NO DISTRESS NOTED. CALL LIGHT IN REACH.
[2019-11-11 21:48] VITALS: BP 136/67
--- NOTE | 2019-11-12 00:55 | NUR ---
SLEEPING WITH RESPIRATIONS UNLABORED. NO DISTRESS NOTED.
--- NOTE | 2019-11-12 05:26 | NUR ---
QUIET HOURS. NO ACUTE CHANGES IN CONDITION THIS SHIFT. RESTING IN BED WITH NO DISTRESS NOTED.
[2019-11-12 08:00] VITALS: BP 156/79
--- NOTE | 2019-11-12 13:42 | NUR ---
Nutrition Follow-up: Diet: Regular + Ensure Clear PO intake: 50-75% x 6 meals (11/09/19-11/10/19), no recent PO intake recorded. She reports that her appetite is up and down. States that it was down today. She states that she is still having some diarhea but feels that it may have been getting a little better. She denies needs from kitchen but states that she does not like the Ensure Clear and request that I remove them. Last BM: 11/12/19. Wt: 139/# (11/04/19) Meds and labs reviewed Recommend continue current diet. Will D/C oral nutrition supplement per patient request. RD following.
[2019-11-12 19:42] VITALS: BP 135/64
--- NOTE | 2019-11-12 19:50 | NUR ---
PATIENT RECEIVED SITTING UP IN BED. ASSESSMENT & VITAL SIGNS DONE. PATIENT ONE PERSON ASSIST INTO WHEELCHAIR TO BATHROOM. VOID ONLY. RETURNED TO LOW BED. ALARM ON. CALL LIGHT WITHIN REACH. WILL CONTINUE TO MONITOR.
--- NOTE | 2019-11-13 01:33 | NUR ---
I have reviewed this patient and I concur with the Shift Assessment completed by the Licensed Practical Nurse today this shift.
--- NOTE | 2019-11-13 02:16 | NUR ---
PATIENT AWAKE. TOILETED. VOID ONLY. PATIENT RETURNED TO BED. ALARM ON. BED LOW. CALL LIGHT WITHIN REACH. WILL CONTINUE TO MONITOR.
[2019-11-13 08:00] VITALS: BP 135/68
--- NOTE | 2019-11-13 08:00 | NUR ---
SHIFT ASSMT COMPLETED.BREAKFAST GIVEN.CL IN REACH.
--- NOTE | 2019-11-13 12:00 | NUR ---
UP ON SIDE OF BED EATING LUNCH WITH DAUGHTER.CL IN REACH.
--- NOTE | 2019-11-13 20:00 | NUR ---
PATIENT RECEIVED SITTING UP IN BED. ASSESSMENT & VITAL SIGNS DONE. BED LOW. ALARM ON. CALL LIGHT WITHIN REACH. WILL CONTINUE TO MONITOR.
[2019-11-13 20:07] VITALS: BP 147/76
--- NOTE | 2019-11-13 22:20 | NUR ---
PATIENT ASKED THIS NURSE TO GO TO BATHROOM AFTER HER ROOM MATE WAS FINISHED. PATIENT MINIMAL TRANSFER INTO WHEELCHAIR. PATIENT USED HAND RAIL IN FRONT OF COMMODE TO TRANSFER OUT OF WHEELCHAIR & ONTO THE COMMODE. VOID & SMALL BM. PATIENT INSISTED SHE BE GIVEL SOMETHING FOR LOOSE STOOLS. PATIENT RETURNED TO BED WITH MINIMAL ASSIST. ALARM ON. CALL LIGHT WITHIN REACH. WILL CONTINUE TO MONITOR.
--- NOTE | 2019-11-14 02:36 | NUR ---
I have reviewed this patient and I concur with the Shift Assessment completed by the Licensed Practical Nurse today this shift.
[2019-11-14 08:00] VITALS: BP 143/71
--- NOTE | 2019-11-14 08:00 | NUR ---
SHIFT ASSMT COMPLETED.BILAT HEELS FLOATED ON PILLOW.DRSG TO RT HEEL INTACT.
--- NOTE | 2019-11-14 12:00 | NUR ---
UP IN WC EATING LUNCH.CL IN REACH.
[2019-11-14 20:00] VITALS: BP 116/50
--- NOTE | 2019-11-14 20:40 | NUR ---
PATIENT RECEIVED SITTING UP IN BED. ASSESSMENT & VITAL SIGNS DONE. PATIENT TAKEN TO BATHROOM. TOILETED VOID ONLY. PATIENT CLOTHING REMOVED. PATIENT GIVEN SHOWER WITH MINIMAL ASSIST. BED LINENS CHANGED. RETURNED TO LOW BED. ALARM ON. CALL LIGHT WITHIN REACH. WILL CONTINUE TO MONITOR.
--- NOTE | 2019-11-15 01:34 | NUR ---
I have reviewed this patient and I concur with the Shift Assessment completed by the Licensed Practical Nurse today this shift.
--- NOTE | 2019-11-15 02:31 | NUR ---
PATIENT EYES CLOSED. RESPIRATIONS 18 & EVEN. BED LOW. ALARM ON. CALL LIGHT WITHIN REACH. WILL CONTINUE TO MONITOR.
[2019-11-15 07:05] LABS: CALC OSMOLALITY 281 mosm/kg (275-300); CALCIUM 8.8 mg/dL (8.5-10.1); CARBON DIOXIDE 31.1 mmol/L (21.0-32.0); CHLORIDE - SERUM 105 mmol/L (98-107); CREATININE - SERUM 0.7 mg/dL (0.6-1.3); GLUCOSE 84 mg/dL (74-106); POTASSIUM - SERUM 3.9 mmol/L (3.5-5.1); SODIUM 142 mmol/L (136-145); UREA NITROGEN 12 mg/dL (7-18); eGFR NON AFRICAN AMERICAN 86 mL/min (90-120)
--- NOTE | 2019-11-15 07:12 | NUR ---
A/A/OX4. DENIES ANY PAIN OR DISCOMFORT AND NO REQUESTS VOICED. DRESSING TO RIGHT HEEL PLACED. SIDERAILS UP X 2, CALL LIGHT AND FLUIDS WITHIN REACH, BED IN LOW LOCKED POSITION.
[2019-11-15 08:03] VITALS: BP 107/63
[2019-11-15 08:26] LABS: HEMATOCRIT 38.7 % (36.0-48.0); HEMOGLOBIN 11.8 g/dL (12-16); LYMPHOCYTES 29.4 % (15-50); MCH 27.5 pg (26.0-34.0); MCHC 30.5 g/dL (31.0-37.0); MCV 90.2 fL (80.0-100.0); MEAN PLATELET VOLUME 9.4 fL (7.4-10.4); NEUTROPHILS 59.6 % (40-80); PLATELET COUNT 347 10x3/uL (130-400); RBC 4.29 10x6/uL (4.00-5.40); RDW 14.2 % (11.5-14.5); WBC 5.5 10x3/uL (4.8-10.8)
--- NOTE | 2019-11-15 13:48 | NUR ---
I have reviewed this patient and I concur with the Shift Assessment completed by the Licensed Practical Nurse today this shift.
--- NOTE | 2019-11-15 19:56 | NUR ---
PT IS RESTING IN BED WITH EYES OPEN. ALERT AND ORIENTED X 3. DENIES ACUTE PAIN OR DISCOMFORT AT THIS TIME. NO NEEDS VOICED.SR'S ARE UP X 2 IN BED. CALL LIGHT AND BEDSIDE TABLE ARE WITHIN EASY REACH.
[2019-11-15 20:26] VITALS: BP 113/60
--- NOTE | 2019-11-15 22:05 | NUR ---
PT ASSISTED TO THE BATHROOM WITH MIN ASSIST. NO FURTHER NEEDS VOICED.
--- NOTE | 2019-11-16 01:33 | NUR ---
I have reviewed this patient and I concur with the Shift Assessment completed by the Licensed Practical Nurse today this shift.
--- NOTE | 2019-11-16 04:48 | NUR ---
PT IS RESTING QUIETLY IN BED WITH EYES CLOSED. NO DISTRESS NOTED.
--- NOTE | 2019-11-16 07:20 | NUR ---
A/A/OX4. DENIES ANY NEEDS AT PRESENT TIME AND NO REQUESTS VOICED. RESP EVEN AND UNLABORED ON RA. SIDERAILS UP X 2, CALL LIGHT AND FLUIDS IN REACH AND BED IN LOW LOCKED POSITION.
[2019-11-16 07:55] VITALS: BP 141/76
--- NOTE | 2019-11-16 12:38 | NUR ---
I have reviewed this patient and I concur with the Shift Assessment completed by the Licensed Practical Nurse today this shift.
--- NOTE | 2019-11-16 16:04 | NUR ---
Nutrition Follow-up: Diet: Regular PO intake: ~67% average x last 6 meals. She states that her appetite is "better." She does c/o diarrhea and states that she has gone several times today but states that she is getting medicine for it now. Last BM: 11/16/19 (per patient). Wt: 139# (11/04/19), no new weight Meds noted: K-dur, imodium (PRN). Labs reviewed. Skin: stage II PU to R heel Recommend getting new weight. Recommend continue current diet. She has previously declined oral nutrition supplements. RD following.
[2019-11-16 19:00] VITALS: BP 118/72
--- NOTE | 2019-11-16 19:48 | NUR ---
HELPED PT TO BED, PLEASANT, INTRODUCED SELF, NO NEEDS NOTED, FALL PRECAUTIONS IN PLACE, FLUIDS/CALL LIGHT WITHIN REACH
--- NOTE | 2019-11-17 00:48 | NUR ---
HELPED PT TO BED, IN ROOM, PLEASANT, INTRODUCED SELF, NO NEEDS NOTED, FALL PRECAUTIONS IN PLACE, FLUIDS/CALL LIGHT WITHIN REACH
[2019-11-17 05:47] LABS: ANION GAP 7.9 mmol/L (8-16); CALCIUM 8.4 mg/dL (8.5-10.1); CARBON DIOXIDE 30.9 mmol/L (21.0-32.0); CREATININE - SERUM 0.8 mg/dL (0.6-1.3); POTASSIUM - SERUM 3.8 mmol/L (3.5-5.1)
[2019-11-17 07:21] LABS: HEMATOCRIT 37.3 % (36.0-48.0); HEMOGLOBIN 11.5 g/dL (12-16); LYMPHOCYTES 28.2 % (15-50); MCH 27.8 pg (26.0-34.0); MCHC 30.8 g/dL (31.0-37.0); MCV 90.3 fL (80.0-100.0); MEAN PLATELET VOLUME 9.5 fL (7.4-10.4); NEUTROPHILS 56.9 % (40-80); PLATELET COUNT 307 10x3/uL (130-400); RBC 4.13 10x6/uL (4.00-5.40); RDW 13.9 % (11.5-14.5); WBC 4.9 10x3/uL (4.8-10.8)
--- NOTE | 2019-11-17 08:00 | NUR ---
SHIFT ASSMT COMPLETED.CL IN REACH.UP OOB TO BATHRM AND BACK IN WC.BREAKFAST GIVEN.CL IN REACH.
--- NOTE | 2019-11-17 12:00 | NUR ---
SITTING UP EATING.
--- NOTE | 2019-11-17 15:05 | NUR ---
CARE TEAM MEETING: PATIENT PROGRESSING WELL IN THERAPY. TENATIVE DISCHARGE DATE IS 11/19/19. JESUS FROM [facility] WILL COME AND ASSESS IN AM IF PATIENT ABLE TO RETURN TO HER APARTMENT. WILL CONTINUE TO FOLLOW WITH PATIENT.
--- NOTE | 2019-11-17 19:16 | NUR ---
PT ASLEEP AROUSES EASILY TO VOICE, NO NEEDS NOTED, FALL PRECAUTIONS IN PLACE, FLUIDS/CALL LIGHT WITHIN REACH
[2019-11-17 21:29] VITALS: BP 113/60
--- NOTE | 2019-11-18 03:12 | NUR ---
PT ASLEEP AROUSES EASILY TO VOICE, NO NEEDS NOTED, FALL PRECAUTIONS IN PLACE, FLUIDS/CALL LIGHT WITHIN REACH
--- NOTE | 2019-11-18 07:53 | RHP ---
PATIENT: DREW GARCÍA MEDICAL RECORD: [id number] ACCOUNT: [id number] LOCATION:[facility] [id number] : 42 ADMISSION DATE: 11/03/19 REHABILITATION HISTORY AND PHYSICAL EXAMINATION POST ADMISSION PHYSICIAN EXAMINATION POST ADMISSION PHYSICAL EXAMINATION AND HISTORY AND PHYSICAL ADMITTING DIAGNOSIS: Debility. HISTORY OF PRESENT ILLNESS: The patient is admitted secondary to oropharyngeal dysphagia. The patient is a 79-year-old female patient who had weakness and back pain after a fall. She has had 3 falls over the previous 6 months. States that she had been had an x-ray of her back at [facility] with no findings. She was unable to get out of bed 2 days prior to coming to the Emergency Room. She was currently being treated for UTI with Cipro. She was found to be somewhat hypoxic. She was admitted for the acute hospital for weakness, hypoxia, falls and back pain. The patient had a CT of the abdomen and pelvis, which really showed nothing acute at this time. She did have a large hiatal hernia and some diverticulosis, but no signs of any fractures other than some multiple chronic appearing left-sided rib fractures. She had degenerative changes in her spine. She has been receiving physical, speech and occupational therapy throughout her stay and progressing well. She need to be monitored with telemetry and require supplemental O2. She is also on medicines for UTI, pain control, we will monitor her need for anticoagulation therapy. She is on electrolyte protocol and we will monitor her lab values. Got proximal muscle weakness, balance deficits, decreased activity tolerance, impaired mobility, decreased range of motion, limited safety awareness, she has medical complexity, and risk for fall. She needs cues for equipment and she has got low endurance, unsteady gait and balance, fatigues easily and inability to care for self at this time, which is a barrier to her discharging home. She lives at [facility] and was independent with ADLs and mobility prior to this, using a rolling walker. She is currently max assist for ADLs and mod to max assist for mobility. She and her family would like for her to return home at her prior level of functioning or better. COMORBIDITIES: In this patient include weakness, oropharyngeal dysphagia. She has got generalized weakness status post falls, back pain, UTI, hyperlipidemia, anxiety disorder, dementia, got a history of normal pressure hydrocephalus with shunt placement and shunt revision. 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 She has got history of breast cancer, hypoxia, anemia. PAST MEDICAL HISTORY: Significant for coronary artery disease and COPD. She has got a history of breast cancer, acid reflux, fibromyalgia, dementia. She has got a history of normal pressure hydrocephalus. PAST SURGICAL HISTORY: Includes a lumpectomy. She has had axillary nodes removed, LAP REGULATOR shunt, surgery on her right arm, and cataract surgery. ALLERGIES: ATIVAN AND CODEINE. CURRENT MEDICATIONS: Include Singulair 10 mg at bedtime, Prozac 20 mg daily, Aricept 5 mg daily, Vale 60 mg b.i.d., vitamin D 2000 units daily, Mirapex 0.5 mg t.i.d., Astelin nasal spray daily. She is on Protonix 40 mg daily, DuoNeb updrafts q.4 hours p.r.n. shortness of breath, tramadol 50 mg q.6 hours, HISTORY AND PHYSICAL [id number] DREW GARCÍA Mucinex 600 mg b.i.d., Klonopin 0.5 mg b.i.d. as needed for anxiety, and Tylenol 500 mg q.6 hours p.r.n. HABITS: No alcohol or tobacco use. FAMILY HISTORY: Noncontributory. SOCIAL HISTORY: The patient hopes to return back to her [facility] assisted living and get back to her prior level of functioning. REVIEW OF SYSTEMS: GENERAL: Does complain of weakness and fatigue. HEENT: Denies cold, cough, or congestion. CARDIOVASCULAR: Denies any chest pain. LUNGS: Does complain of shortness of breath at times. PHYSICAL EXAMINATION: VITAL SIGNS: Stable. She is afebrile. GENERAL: An elderly female, in no acute distress upon exam. HEENT: Normocephalic and atraumatic. Mucosa moist. NECK: Supple. No lymphadenopathy. LUNGS: Clear in upper [place], decreased breath sounds in the bases. HEART: Regular rate and rhythm. No murmurs, rubs or gallops. ABDOMEN: Soft, benign, and nondistended. Positive bowel sounds times 4. EXTREMITIES: No clubbing, cyanosis or edema. NEUROLOGIC: The patient does have noted proximal muscle weakness. LABORATORY DATA: Her white count 4.8, H&H 10.5 and 34.7, and platelet count is 258. Her sodium is 143, potassium 3.2, BUN and creatinine of 7 and 0.6 and blood sugar is noted to be 87. ASSESSMENT: This is a 79-year-old female patient admitted to rehab with a working diagnosis of debility. The patient has potential to make improvement. We instituted the following multidisciplinary therapies including, but not limited to physical, occupational, respiratory, speech, nutritional services, prosthetics and orthotics. Given her complex medical condition and risk for more complications, rehabilitation services cannot be provided at a low level of care such as skilled nurse facility. PLAN: 1. Admit to [facility] for inpatient therapy to include the following disciplines; A. Physical therapy to improve gait, all transfer skills and bed mobility to a modified independent level. B. Occupational therapy to improve activities of daily living. C. Case management to help with discharge planning and placement options. D. Nutrition to assist with nutritional needs. E. Rehabilitation nursing to assist in monitoring the patient's underlying medical conditions and to assist with any type of bowel or bladder management. 2. The patient's current medication and medical care will be continued. 3. The patient will be placed on standard fall precautions. 4. The patient's estimated length of stay is approximately 7-10 days. 5. We will discuss this patient during care team staff meeting this week and I am going to replace her potassium and I going to see her in the morning. HISTORY AND PHYSICAL [id number] DREW GARCÍA TRANSINT:[id number] Voice Confirmation ID: [id number] DOCUMENT ID: [id number] ABBEY notes whether there has been none or any medical/functional change since admission: - No change since prescreen. ABBEY attests patient continues to be appropriate for IRF: - Continues to be appropriate. JEANNINE DE PAZ MD at 0753 CC: [id number] DICTATION DATE: 11/04/19 0855 [employer]OM SHOE DES[employer]ER [employer]KER: 11/04/19 1055 ADM IN [place] [id number] [place] [address]
--- NOTE | 2019-11-18 08:00 | NUR ---
SHIFT ASSMT COMPLETED.
[2019-11-18 19:00] VITALS: BP 128/54
--- NOTE | 2019-11-18 19:40 | NUR ---
RECEIVED PT LYING IN BED EYES CLOSED RESTING QUIETLY. RR EVEN AND UNLABORED. EASILY AROUSED WITH VERBAL STIMULI. CALL LIGHT WITHIN REACH. FALL PRECAUTIONS IN PLACE. CPOC
--- NOTE | 2019-11-19 02:15 | NUR ---
PT LYING IN BED ON LEFT SIDE EYES CLOSED RESTING. RR EVEN AND UNLABORED. CALL LIGHT WITHIN REACH. FALL PRECAUTIONS IN PLACE. CPOC
--- NOTE | 2019-11-19 04:42 | NUR ---
PT SITTING UP IN W/C PERFORMING ORAL HYGIENE AT BATHROOM SINK. DENIES ANY NEEDS OR PAIN. NO SIGNS OF ACUTE DISTRESS NOTED. FALL PRECAUTIONS IN PLACE. CPOC
--- NOTE | 2019-11-19 07:34 | NUR ---
PT UP IN WC GATHERING BELONGINGS TO GO HOME TODAY, REQUESTING PRN PAIN MED, FLUIDS/CALL LIGHT WITHIN REACH
[2019-11-19] MEDS ORDERED: DONEPEZIL HCL5 MG PO (08:59)
--- NOTE | 2019-11-19 10:16 | NUR ---
PT REQUESTED PRN IMMODIUM AT 0930, GIVEN, RESULTS SUCCESSFUL
--- NOTE | 2019-11-19 12:05 | NUR ---
PT PICKED UP BY SIRIA HEREDIA AT 1200, ALL PTS BELONGINGS LEFT WITH PT, ALL PAPERS SIGNED, SURVEY TURNED INTO [facility] BY PT SHE LEFT FACILITY
[2019-11-19 13:02] VITALS: BP 125/63; BP 146/79
== END 2019-11-19 13:06 | disposition home health service (06) | DRG 948 ==
LOC: D.REHAB 22:30
PROVIDERS: ADMIT Emergency Medicine; ATTEND Emergency Medicine
DX: R53.81 Other malaise (principal); N39.0 Urinary tract infection, site not specified; G96.0 Cerebrospinal fluid leak; R13.12 Dysphagia, oropharyngeal phase; R53.1 Weakness; M54.9 Dorsalgia, unspecified; E78.5 Hyperlipidemia, unspecified; F41.8 Other specified anxiety disorders; F03.90 Unspecified dementia, unspecified severity, without behavioral disturbance, psychotic disturbance, mood disturbance, and anxiety; K21.9 Gastro-esophageal reflux disease without esophagitis; R13.11 Dysphagia, oral phase; D64.9 Anemia, unspecified; J44.9 Chronic obstructive pulmonary disease, unspecified; F41.9 Anxiety disorder, unspecified; R09.02 Hypoxemia

== ENCOUNTER → 2020-07-03 10:44 | Outpatient (CLI) | payer MEDICARE ==
[2019-11-04 13:41] VITALS: BMI 23.8
[~2020-07-03 10:44] MED LIST changes: +DONEPEZIL HCL5 MG PO
== END | disposition home or self-care (01) ==
LOC: D.NM 06-01 08:00
PROVIDERS: ATTEND Neurological Surgery
DX: T85.09XA Other mechanical complication of ventricular intracranial (communicating) shunt, initial encounter (principal)